=== PATIENT | female | born 1945 | race Caucasian/White ===

== ENCOUNTER → 2018-07-22 09:35 | Outpatient (CLI) | payer MEDICARE, SELFPAY ==
[2018-07-22 09:45] LABS: RBC Urine None Seen (0-5/HPF)
[2018-07-22 10:02] LABS: Appearance Urine UA CLEAR; Bilirubin Urine UA NEGATIVE (NEGATIVE); Color Urine UA YELLOW; Glucose Urine UA NEGATIVE (Normal); Ketones Urine UA NEGATIVE (NEGATIVE); Leukocyte Esterase Urine UA TRACE (NEGATIVE); Nitrite Urine UA NEGATIVE (Negative); Occult Blood Urine UA NEGATIVE (Negative); Protein Urine UA NEGATIVE (Negative); Specific Gravity Urine UA <=1.005 (1.000-1.035); Urobilinogen Urine UA 0.2 E.U./dL (0.2); pH Urine UA 6.5 (4.5-8.0)
[2018-07-22 10:04] LABS: Add Manual Diff / Slide Review NO; Hematocrit 40.8 % (36-46); Hemoglobin 13.9 g/dL (12.0-16.0); Lymphocytes Percent Auto 26.3 % (25-40); Mean Corpuscular Hemoglobin 31.2 PG (26-34); Mean Corpuscular Volume 91.8 fL (80-100); Monocytes Percent Auto 7.6 % (3-14); Neutrophils Absolute Auto 4800 /uL (3000-5900); Neutrophils Percent Auto 65.1 % (50-75); Platelet Count 327 X10^3/uL (150-400); Red Blood Cell Count 4.45 X10^6/uL (4.0-5.2); Red Cell Distribution Width 14.2 % (11.6-14.8); White Blood Cell Count 7.4 X10^3/uL (4.5-11.0)
[2018-07-22 10:09] LABS: Bacteria Urine Moderate (10-30); WBC Urine 1-5/HPF (0-5/HPF)
[2018-07-22 10:10] LABS: Culture Indicated Urine Specimen Cultured
== END ==
PROVIDERS: Family Provider Internal Medicine; PCP Internal Medicine; Visit Provider Internal Medicine
DX: M43.16 Spondylolisthesis, lumbar region (principal); N39.0 Urinary tract infection, site not specified
CPT/HCPCS: 36415; 81001; 85025; 87077; 87086; 87186

== ENCOUNTER 2018-07-25 06:03 | Inpatient (IN) | payer MEDICARE, SELFPAY ==
[2018-07-12 08:53] VITALS: BMI 17.9
[2018-07-25] VITALS (17 sets, daily range): BP systolic 98–142; BP diastolic 43–73; PULSE 70–84; RESP 10–16; TEMP 36.2–36.9; O2SAT 95–100; BMI 17.9
--- NOTE | 2018-07-25 | DI.RAD.S_ITS ---
PROCEDURE: XR LUMBAR SPINE 2-3V INDICATIONS: XLIF T3-4 T4-5 TECHNIQUE: 2 views of the lumbar spine were acquired. COMPARISON: None. FINDINGS: Bones: On [id number] vertebrae are present. There is normal bony alignment established after placement of transverse pedicle screws and bilateral vertical fixation rods from L3-L5, with an interbody disc prosthesis and old 34 and a cage disc prosthesis at L4-5. No vertebral body compression fractures. No suspicious bony lesions. Soft tissues: Overlying bowel gas pattern is normal. No suspicious soft tissue calcifications. IMPRESSION: Normal anatomic alignment established after posterior fusion and interbody disc prosthesis/cage disc prosthesis at L3-4 and L4-5, respectively Dictated by: Carlos Porras M.D. on 07/25/2018 at 12:18 Approved by: Carlos Porras M.D. on 07/25/2018 at 12:20
[2018-07-25] MEDS: LACTATED RINGERS 1,000 ML 42 ML IV ×3 (07:03→11:26)
--- NOTE | 2018-07-25 07:32 | PM.PREOP ---
Pre-operative Note Interval Note Pre-op Check: Yes History & Physical Reviewed by Physician and Yes Exam Performed Changes: No
--- NOTE | 2018-07-25 07:38 | P.OP_ITS ---
Operative Date/Time/Diagnoses Date of procedure: 07/25/18 Time of procedure: 11:52 Pre-op diagnosis: Lumbar stenosis with radiculopathy Lumbar spondylolisthesis History of lumbar laminectomy Post-op diagnosis: same Procedure & Clinicians Procedure: L3-4 anterior fusion L3-4 posterior fusion L4-5 TLIF Posterior screws L3-5 Iliac crest bone graft aspirate L3-4 laminectomy L4-5 revision laminectomy Use of microscope Placement of epidural catheter Same procedure as scheduled: Yes Indications: [age] year old female with intractable pain from stenosis. They had failed conservative management and requested operative intervention. Risks and benefits of surgery were discussed and appropriate consents were obtained. Surgeon: Eduardo Strickland Certified Meeting Professional: Brittaney Johnston Anesthesia Type: General Operative Notes Findings: none Closure Type: primary Specimen(s): none sent Implants & Drains: Nuvasive XLIF cages and MAS Reline screws Globus Rise cage Applied: catheter Estimated Blood Loss (mL): 50 Blood products transfused: none Procedure in detail: Patient was brought to the operating room and intubated on the table. Time-out was performed. They were then rolled over to the lateral decubitus position with the [id number]. The table was bent and they were taped down in the correct position. X-rays were taken to confirm a true AP and lateral. Preoperative antibiotics were given. The left flank was prepped and draped in standard sterile fashion. Using fluoroscopy, a 3 cm incision was made above the iliac crest. We bluntly dissected down with Metzenbaum scissors and split the 3 abdominal muscle layers. We dissected out the retroperitoneal space and using finger guidance, brought our 1st dilator down to the psoas muscle. Using neuromonitoring and fluoroscopy, we placed it through the psoas onto the L34 disc space in an anterior position and gradually pulled the dilator posteriorly along the disc space. We placed our guidewire and measured our depth for the retractor. We then dilated with the next 2 dilators and then placed our retractor over the dilators. Position was confirmed with fluoroscopy and the retractor was locked down to the bar. We opened up the retractor and checked with neuro monitoring. We then placed the matthew and again checked with neuro monitoring. The retractor was opened further and the ALL retractor was placed. An annulotomy was performed. We then performed a complete diskectomy with ring curette, pituitary, box osteotome. A Webb was advanced across the disc space under fluoroscopy to release the lateral annulus on the opposite side. We then used sequentially larger trials and confirmed under fluoroscopy. An XLIF cage was packed with Osteocell bone graft and impacted into the L34 disc space with fluoroscopy for the anterior fusion at this level. The wound was irrigated. The retractor was closed down. The matthew was removed. We carefully removed the retractor with direct visualization to make sure there was no neurovascular or abdominal injury. Final x-rays were taken. The muscle fascia was closed, superficial tissue was closed. The skin was closed. Sterile dressing was placed. The patient was then rolled over on the well-padded prone position on the Abiel table. Using fluoroscopy for localization, an 8 cm incision was made to the right of the midline. We split through the right sided paraspinal muscles. We then percutaneously placed Jamshidi needles down the right pedicles of L3, L4, and L5. This was done with neural monitoring and fluoroscopy. We then switched out guidewires, tapped and then placed our screw shanks. The retractor was opened. The soft tissue was cleared off in the gutter as well as medially. Care was taken around her previous laminotomy at L4-5. We used the bur to decorticate the transverse processes of L3, L4, and L5. We then brought in the microscope. A right sided revision laminectomy was performed at L4-5 with a bur and Kerrison rongeurs. We cleared out the neural foramen with a near complete facetectomy. This was separate and distinct from a approach for a TLIF as this was a revision decompression, going through scar tissue, greatly increasing the complexity, operating time, and risk associated with this. We then went up and performed a right-sided laminectomy at L3-4 as well. We carefully depressed the dura to reach to the opposite side and decompress the entire central canal. We cleared out the neural foramen. In the end the ball probe could be placed cephalad and caudally across to the opposite side in the foramen and everything was opened. We then began prepping for the TLIF at L4-5. The dura was carefully cleared off the disc and we cleared off scar tissue to free this up. We finished off the facetectomy and cleared out more caudally until we had a full exposure. An annulotomy was performed. We then performed complete diskectomy at L4-5 with pituitaries, curettes, paddles and Cheikh. We then packed the disc space with Osteocel bone graft. We measured and placed our 8 x 26 mm globus Rise cage and then opened it up under fluoroscopy at L4-5. More bone graft was packed in the disc space. This completed the posterior interbody fusion half of the TLIF at L4-5. The wound was copiously irrigated. An epidural catheter was primed with 4mL of 0.5% bupivacaine, 100 mcg fentanyl, 4 mg Duramorph, 1 mg Stadol. The dura was depressed under the cephalad lamina with a ball probe and the epidural catheter was gently advanced 6 cm cephalad. We placed the heads on our screws and then measured and placed a cheryl and locked it down. A small stab incision was made over the PSIS and a Jamshidi needle was placed into the iliac crest and several mL of bone marrow was aspirated. This was mixed with our locally harvested bone graft as well as the remaining Osteocell and placed in the posterolateral gutter for fusion at L3-4 and the posterior half of the fusion for the TLIF at L4-5. The fascia was then closed. The epidural was then injected without resistance. The catheter was pulled and we closed more over the fascia. We then used fluoroscopy and made a 8 cm incision on the left side. We percutaneously placed Jamshidi needles down the left pedicles of L3, L4, and L5. These were switched out over guidewires and then tapped and the MAS screw placed with fluoroscopic guidance and neural monitoring. We then placed a cheryl and locked down. The wound was irrigated. The fascia was closed. Vancomycin powder was placed in the wounds. The superficial and skin were closed. Sterile dressing was placed. The patient was then rolled over, extubated, brought to the recovery room with no complications. Complications: none Condition: stable Disposition: PACU Plan for aftercare: Inpatient. Up with physical therapy
[2018-07-25] MEDS: MIDAZOLAM 2 MG/2 ML VIAL IV (07:44)
[2018-07-25] MEDS: APREPITANT 40 MG CAPSULE PO (07:44)
[2018-07-25] MEDS: CEFAZOLIN 2 GM/100 ML FROZ.PIGGY IV ×2 (07:48→17:21)
--- NOTE | 2018-07-25 08:33 | SUR.OPER ---
Right lateral on padded OR table. Head on pillow, gel axillary roll, pillow to support left arm. Legs flexed, pillows between legs, gel pad under down leg and ankle. Multiple passes of 3 inch cloth tape across shoulder, hip, upper and lower legs to secure patient on OR table.
[2018-07-25] MEDS: SODIUM CHLORIDE 0.9% 1,000 ML, GENTAMICIN 80 MG IRR ×2 (08:42→08:43)
[2018-07-25] MEDS: BUPIVACAINE 0.5% (PF) 4 ML, MORPHINE-PF 4 MG, BUTORPHANOL 1 MG, fentaNYL 100 MCG INJ (09:43)
[2018-07-25] MEDS: VANCOMYCIN 1,000 MG VIAL 1000 MG TOP (10:52)
[2018-07-25] MEDS: THROMBIN (BOVINE) 5,000 UNIT VIAL 5000 UNIT TOP (11:11)
[2018-07-25] MEDS: fentaNYL 100 MCG/2 ML INJ 25 MCG IV ×2 (12:31→12:42)
--- NOTE | 2018-07-25 12:49 | SUR.PHASEI ---
verbalizes decreased pain, appears more relaxed. able to relax at times.
--- NOTE | 2018-07-25 12:53 | CM.DANOTE ---
DCP/Assessment: Reviewed chart. Patient is a 72yr old female admitted to [facility] for spine surgery performed today by Dr. Strickland. PCP listed is Dr. Baxter. Primary payor is 1)Medicare 2)[facility]. Attempted to meet with patient to explain CM/SW role. Patient not in room at time of visit(remains in surgery). CM housekeeping and laundry team leader will re-attempt visit after surgery and when patient medically appropriate to access. Discharge Planning/Care Management CM Discharge Assessment Start: 07/25/18 12:51 Freq: Status: Active Protocol: Document 07/25/18 12:51 KJS (Rec: 07/25/18 12:53 KJS [id number]) Discharge Planning Assessment Assigned Optical Mechanic TRAY Perez Advance Directives? Yes Advance Directives on File Yes History Provided By Medical Record Has Patient been admitted in last 30 No days? Prior Living Arrangements House Household Members spouse Transportation Arrangement Pending in person assessment Referrals Initiated Other Review Status In Process Please Provide Date Initial DC 07/25/18 Assessment Was Performed Next Review Type Continued Stay Review Pre-Anesthesia Assessment Start: 07/12/18 08:53 Freq: Status: Active Protocol: Document 07/12/18 08:53 CAB (Rec: 07/12/18 09:25 CAB [id number]) Pre-Anesthesia Assessment Patient Also Known As Burnham (AKA) Patient Information Reviewed Via Phone Assessment Assessment Completed With Patient Lab Results BMP/CMP CBC EKG Primary Care Provider Eva Baxter Medical Clearance Received Yes Seen Specialist in Last 12 Months Yes Specialist Seen Orthopedist Comment PCP clearance 06/27/18 to [facility] recs to be scanned to chart Primary Language Turkish Student Development Specialist Required No Height 160.02 cm Weight 45.813 kg Body Mass Index (BMI) 17.9 Hearing Ability Normal Visual Assist Glasses Dentition Type Teeth, Natural Present Barriers to Learning None Other Aids No Hx Anesthesia Reactions No Hx Family Anesthesia Reaction No Hx Malignant Hyperthermia No Hx Blood Transfusions No Anesthesia Review Requested No Chief Meteorologist No alcohol intake current alcohol intake frequency a few times a week Smoking Status Current every day smoker Tobacco type cigarettes Smoking packs per day 0.75 Smoking pack-years 30 Substance Use Type does not use Pain Present Pain Reported Musculoskeletal Symptoms Abnormal Gait Back Pain Difficulty Walking Joint Pain Muscle Cramps Muscle Spasms Muscle Weakness Numbness Radiating Pain into Limb Tingling History of Falling (Recent or History of No ) Patient is completely paralyzed or No completely immobile Mental Status Oriented to own ability Is patient on oxygen? No Does patient have MARIN/SOB No Hx Sleep Apnea No Suspected Sleep Apnea No Currently Taking a Beta Eldon No Can You Climb a Flight of Stairs Without Yes SOB Hx Chest Pain No Hx SOB No Hx Syncope or Dizziness No Anti-Coagulant Therapy No Has a Freight Brake Operator No Cardiac Testing No Hx Pacemaker/ICD No Pacemaker Rep Required? No Cardiac Clearance Received Not Applicable Diet Type At Home Regular dysphagia No Bladder Pattern Frequency Incontinent Nocturia Urinary Catheter Present No Hx Urinary Self Catheterization No Diabetes No Patient No Lactating No Hx Drug Resistant Organism No Presence of External or Internal Medical No Devices Have you traveled outside the [facility] in the last 30 days? Marital Status Lives With spouse Prior Living Arrangements House Number of Floors (Floors) One Floor Number of Stairs To Enter/Railing? 2 stairs, railing present Support System Child/Children Spouse Does the Patient Have Assistance After Yes Surgery Patient Discharge Plan Description Return Home Comment Pt advised 2-3 day length of stay per surgeon's office Feels Safe in Current Environment Yes Been Physically Hurt or Threatened By a No Person in Current Environment Do you have thoughts of harming yourself None or others? Are you currently considering suicide? No Do you have a plan to hurt yourself or No Plan others? Do You Have Any Spiritual Beliefs That No May Affect Your HC Choices? Do You Have Any Cultural Practices That No May Affect Your HC Choices? Spiritual Referral None Comment Lugaurav Who Can We Speak to About Patient's Care Family, friends Identifying Code for Release of Patient Declines to issue Information Health Care Proxy/Next of Kin Addy () Health Care Proxy or [phone] Emergency Contact Name Addy () Emergency Contact or [phone] Advance Directives? Yes Advance Directives on File Yes Power of Counselor/Art Therapist No PAC Instructions Durable medical equipment Medications to take/avoid Nasal antibiotic No ETOH/petroleum product on skin DOS NPO Post-op transportation Pre-surgical wash Sensory aids Sturdy shoes/comfortable clothes Do not bring valuables and remove jewelry
--- NOTE | 2018-07-25 13:04 | SUR.PHASEI ---
sleeping now maintaining oxygen saturation >92% while sleeping now. Easily arrousable from sleep drifts back to sleep when not stimulated.
[2018-07-25] MEDS: MORPHINE 2 MG/ML INJ 1 MG IV (14:16)
--- NOTE | 2018-07-25 15:44 | PC.NURSE ---
Post-op: Late entry Arrived to room 218 at 1325. Drowsy but awake. C/O 6/10 back pain, medicated with 1 mg IV Morphine for the same. Dressings to mid low back and L hip C/D/I. Able to move all extremities and denied paresthesias. Denied N/V, taking ice and water. Left on 2L O2, sats 96-99%. IVF per orders, site in L forearm WNL. Apodaca to gravity, urine clear yellow. Oriented to room and call light, bed alarm on.
[2018-07-25] MEDS: HYDROCODONE/ACET 5/325 TABLET 2 TAB PO ×2 (15:52→20:36)
[2018-07-25] MEDS: MORPHINE 2 MG/ML INJ IV ×2 (15:53→20:35)
--- NOTE | 2018-07-25 17:07 | PT.IPTN ---
Current Diagnoses Spondylolisthesis, lumbar region (07/25/18) Spinal stenosis, lumbar region with neurogenic claudication (07/25/18) Other specified postprocedural states (07/25/18) Surgery Performed Operation Date: 07/25/18 07:45 Actual Procedures p L3-4, L4-5 Revision Laminectomy & Anterior/Posterior Instru. fusion with bone graft - Eduardo Strickland MD Physical Therapy Treatment Note M3 PT-IP Subjective Start: 07/25/18 17:04 Freq: NEEDED Status: Active Protocol: Document 07/25/18 17:05 ORION (Rec: 07/25/18 17:07 ORION [id number]) Subjective Physical Therapy Visit Type Type Patient Refusal Notes at 1702 patient refused to participate in PT evaluation due to surgical pain; states pain is about 7/10 even with medication. Pt agreeable to participate tomorrow morning.
[2018-07-25] MEDS: DOCUSATE 100 MG CAPSULE PO (20:38)
[2018-07-25] MEDS: SENNOSIDES 8.6 MG TABLET 17.2 MG PO (20:38)
[2018-07-25] MEDS: SIMVASTATIN 20 MG TABLET PO (20:38)
[2018-07-25] MEDS: LACTATED RINGERS 1,000 ML 125 ML IV (22:34)
--- NOTE | 2018-07-25 23:47 | PC.NURSE ---
Maryellen is Ox3, post-op VS have been stable. 2L O2 at 94-96%. Reports pain as high as 8 or 9 when pain meds due, taking 2 Neches, telling nurse that will not be enough, requesting something stronger & faster, patient with facial grimace & moaning at times. Repositioned for comfort from [id number]. Medicated with Morphine 2 mg IV with good result, pt then able to rest or visit with family and appears more relaxed. PT here at 1800 to work with her but she refused them r/t all the pain. IVF infusing as ordered, ashford patent with clear yellow urine. Tolerating general diet. Wearing bilateral SCD's and denies any numbness or tingling to legs. Instructed to call nurse if she has any needs at all, has been calling appropriately tonight. Bed alarm active & fall precautions in place.
[2018-07-26] VITALS (9 sets, daily range): BP systolic 103–129; BP diastolic 55–76; PULSE 69–81; RESP 14–20; TEMP 36.3–36.8; O2SAT 93–98
[2018-07-26] MEDS: MORPHINE 2 MG/ML INJ IV ×4 (00:20→13:29)
[2018-07-26] MEDS: CEFAZOLIN 2 GM/100 ML FROZ.PIGGY IV (00:20)
[2018-07-26] MEDS: HYDROCODONE/ACET 5/325 TABLET 2 TAB PO ×6 (00:23→22:17)
[2018-07-26] MEDS: LEVOTHYROXINE 25 MCG TABLET 12.5 MCG PO (06:09)
[2018-07-26] MEDS: PANTOPRAZOLE 20 MG TABLET PO (06:09)
[2018-07-26 06:39] LABS: Hematocrit 28.7 % (36-46); Hemoglobin 9.5 g/dL (12.0-16.0)
--- NOTE | 2018-07-26 08:17 | PM.PNPO.1 ---
Subjective Date Patient Seen: 07/26/18 Time Patient Seen: 08:18 Interval history: Patient is postop day 1. Status post lamina/fusion by Dr. Strickland. States that she is having pain in the back area. Currently receiving hydrocodone as needed for pain and morphine for breakthrough pain. Denies any numbness or tingling in the legs or feet. Has not been up with physical therapy yet. Exam Vital Signs (past 8 hours): - 07/26/18 04:43 07/26/18 04:47 07/26/18 06:19 Temperature 98.1 F Pulse Rate 69 Respiratory Rate 14 Blood Pressure 103/55 L Pulse Oximetry 98 97 Oxygen Delivery Method Room Air Oxygen Flow Rate 0 Narrative Exam Narrative: Patient in bed. Ft pumps on feet. Dressing clean dry and intact. Alert and orient x3. 5/5 bilateral ankle strength. Bilateral distal pulses palpable. Bilateral calves soft and nontender. Apodaca catheter in. Objective Labs Result Diagrams: 07/26/18 05:59 Labs: Laboratory Results - last 24 hr 07/26/18 05:59 Hgb 9.5 L Hct 28.7 L Assessment & Plan Post-op (1) Postoperative anemia: Problem details: Iron and vitamin-C ordered Current Visit: Yes Status: Acute Postoperative Procedures Operation Date: 07/25/18 07:45 Actual Procedures Side Surgeon p L3-4, L4-5 Revision Laminectomy & Anterior/Posterior Instru. fusion with bone graft Eduardo Strickland MD Postop day 1. Continue pain medication as needed. Ambulate with physical therapy. BLT restrictions. DC Apodaca when more mobile. Possible home next couple of days. Quality VTE Deep Vein Thrombosis/Pulmonary Embolism Present on Admission: No
[2018-07-26] MEDS: ALPRAZolam 0.25 MG TABLET PO (08:55)
--- NOTE | 2018-07-26 09:10 | PT.IIE ---
Current Diagnoses Anemia, unspecified (07/25/18) Spondylolisthesis, lumbar region (07/25/18) Spinal stenosis, lumbar region with neurogenic claudication (07/25/18) Other specified postprocedural states (07/25/18) Surgery Performed Operation Date: 07/25/18 07:45 Actual Procedures p L3-4, L4-5 Revision Laminectomy & Anterior/Posterior Instru. fusion with bone graft - Eduardo Strickland MD Surgical History (Last Updated 07/12/18 @ 09:02 by Julieta Cherry RN) History of lumbar surgery (Acute) History of surgery on arm (Acute) History of total left hip arthroplasty (Acute ~2008) History of total right hip arthroplasty (Acute ~2015) Hx of appendectomy (Acute ~1983) Hx of elbow surgery (Acute) Hx of tonsillectomy (Acute) S/P LASIK surgery of both eyes (Acute) S/P cervical spinal fusion (Acute ~2013) Status post cataract extraction of both eyes with insertion of intraocular lens (Acute) Medical History (Last Updated 07/26/18 @ 08:20 by Anna Wynn PA-C) Postoperative anemia (Acute) Anxiety (Acute) Breast tumor (Acute ~2000) Chronically dry eyes (Acute) GERD (gastroesophageal reflux disease) (Acute) H/O thymoma (Acute ~2014) History of hysterectomy (Acute ~1983) Hyperlipidemia (Acute) Hypothyroidism (Acute) IBS (irritable bowel syndrome) (Acute) Physical Therapy Inpatient Evaluation/Re-Eval M1 PT/OT-IP Prior Functional Status Start: 07/25/18 17:04 Freq: NEEDED Status: Active Protocol: Document 07/26/18 09:10 AB (Rec: 07/26/18 09:57 AB [id number]) Medical Review Prior Functional Status Medical History Reviewed Yes Communication able to make needs known Mobility and Gait stated that she is independent with all mobilities and ambulation without AD; difficulty with long distance ambulation: leans on shopping cart when out doing groceries. Social History Household Members spouse Living Arrangements House Number of Floors (Floors) One Floor Number of Stairs To Enter/Railing? 2 steps with L rail ascending Home Environment Walk in Shower Home Equipment Front Wheel Walker Straight Cane Bedside Commode Shower Seat without Backrest Hand Held Shower Grab Bars In Shower M2 PT-IP Current Condition Start: 07/25/18 17:04 Freq: NEEDED Status: Active Protocol: Document 07/26/18 09:10 AB (Rec: 07/26/18 09:57 AB [id number]) Physical Therapy Current Condition Current Condition Evaluation Date 07/26/18 Treatment Diagnosis s/p L3-4 ant/post fusion; L4-5 TLIF; lami; diff. in amb Onset Date 07/25/18 Precautions Lumbar Precautions Log Roll No Twisting Limit Bending Lifting Restriction of 10 lbs Gait Belt above Incisional Area M3 PT-IP Subjective Start: 07/25/18 17:04 Freq: NEEDED Status: Active Protocol: Document 07/26/18 09:10 AB (Rec: 07/26/18 09:57 AB [email or web address]) Subjective Physical Therapy Visit Type Type Initial Evaluation Visit Start Time 09:10 Visit Stop Time 09:40 Total Visit Minutes 30 Number of MAGNETIC OBSERVER Visits 0 Physical Therapy Visit Comments Patient Comments i just got a shot for pain and I want to move before it wears out Therapy Pain Assessment Pain When Pain Assessed At Rest Pain Present Pain Present Pain Reported Location Lower Back Intensity 5 Scale Used Numeric (1 - 10) Pain Behaviors Crying Pain Management Techniques Apply Cold Re-positioning Timing of Activity with Medications M4 PT-IP Mobility and Gait Start: 07/25/18 17:04 Freq: NEEDED Status: Active Protocol: Document 07/26/18 09:10 AB (Rec: 07/26/18 09:57 AB [email or web address]) PT-Bed Mobility Assessment Rolling Type of Rolling Log Rolling Level of Assist Contact Guard Assistance Supine to Sit Supine to Sit Minimal Assistance Scooting Scooting to Edge of Bed Standby Assistance PT-Transfer Assessment Sit to and From Stand Sit to and from Stand Minimal Assistance 1 Person Assistance Use of Upper Extremities Equipment Transfer Assistive Device Gait Belt Front Wheeled Walker Orthotic/Prosthetic Devices or Brace: No Transfers Transfer Destination Chair Transfer Technique pt ambulated using FWW Transfer Ability Level of Assist Minimal Assistance Use of Upper Extremities Gait Assessment Gait Gait Assistance Required: Minimum Assistance Distance (Feet) 15 Able to Maintain Weight Bearing Status Yes During Gait Assistive Devices Assistive Device Gait Belt Front Wheeled Walker Orthotic/Prosthetic Devices or Brace: No Gait Deviations General Gait Pattern Decreased Stride Length Decreased Feet Clearance Factors Limiting Gait Function Factors Limiting Gait Function Decreased Activity Tolerance Decreased Strength Limited Range of Motion Poor Balance Poor Safety Awareness Comments Gait Comments pt ambulated using FWW min A and cues and presents with dec step length and elevation requiring cues for techniques. PT-Balance Assessment Sitting Balance and Reactions Static Sitting Balance Ability Good Dynamic Sitting Balance Ability Good Standing Balance and Reactions Static Standing Balance Ability Fair Dynamic Standing Balance Ability Fair Device Used FWW M5 PT-IP Objective Assessments Start: 07/25/18 17:04 Freq: NEEDED Status: Active Protocol: Document 07/26/18 09:10 AB (Rec: 07/26/18 09:57 AB [email or web address]) Orientation Orientation/Cognition Level of Alertness Alert Orientation Name Birthday Date Year Day of Week Place Situation Gross Range of Motion Lower Extremity ROM Assessment Within Functional Limits Strength Lower Extremity Strength Assessment Left Impaired Hip 3+/5 Knee 3+/5 Ankle 4-/5 M6 PT-IP Treatment Start: 07/25/18 17:04 Freq: NEEDED Status: Active Protocol: Document 07/26/18 09:10 AB (Rec: 07/26/18 09:57 AB [email or web address]) Physical Therapy Treatment Education Education Provided Precautions Weight Bearing Status Post-Op Packet Safety M7 PT-IP Assessment and Plan Start: 07/25/18 17:04 Freq: NEEDED Status: Active Protocol: Document 07/26/18 09:10 AB (Rec: 07/26/18 09:57 AB [email or web address]) PT Summary Assessment and Plan Potential Rehabilitation Potential Good Status of Condition at Evaluation Evolving Summary Impairments Pain ROM Strength Balance Coordination Cognition Bed Mobility Transfers Gait Activity Tolerance Assessment Summary pt requiring min A with mobility and has decrease activity tolerance due to c/o increase pain on low back. pt plans to go home with spouse to assist her. caregiver training will be conducted when appropriate and stair climbing training to be conducted prior to d/c. Goals Bed Mobility Goal Standby Assistance Transfer Goal Standby Assistance Front Wheeled Walker Gait Goal Standby Assistance Front Wheel Walker Gait Distance 125 Other Goals up/down 2 steps with L rail ascending SBA Days to Meet Goals 3 Frequency of Treatment Frequency Of Treatment Twice a Day Treatment Plan Physical Therapy Treatment Plan Bed Mobility Training Transfer Training Gait Training Therapeutic Exercise Balance Retraining Post Op Education Discharge Planning Hot or Cold Pack Neuromuscular Re-ed Coordination Retraining Manual Therapy Other Recommendations and Next Treatment bed mobility, ambulation Focus Recommendations To Nursing Amount of Assist Needed 1 Person Assist Discharge Recommendations PT Discharge Recommendations Home with Assistance
--- NOTE | 2018-07-26 09:16 | CM.DANOTE ---
DCP/continued: Reviewed chart. Met with patient this AM explained CM/SW role. Spoke with Orthopedic PA and it is not anticipated that patient will d/c from [facility] today. Patient reports that her plan is to go home when medically stable. Patient has supportive spouse/Addy in the home. Therapy expected to see today. CM team to continue to follow if needs were to arise. P: Anticipate home when medically stable. TRAY Perez Discharge Planning/Care Management CM Discharge Assessment Start: 07/25/18 12:51 Freq: Status: Active Protocol: Document 07/25/18 12:51 KJS (Rec: 07/25/18 12:53 KJS [id number]) Discharge Planning Assessment Assigned Bag Worker TRAY Perez Advance Directives? Yes Advance Directives on File Yes History Provided By Medical Record Has Patient been admitted in last 30 No days? Prior Living Arrangements House Household Members spouse Transportation Arrangement Pending in person assessment Referrals Initiated Other Review Status In Process Please Provide Date Initial DC 07/25/18 Assessment Was Performed Next Review Type Continued Stay Review Document 07/26/18 09:13 KJS (Rec: 07/26/18 09:16 KJS [id number]) Discharge Planning Assessment Assigned Bag Worker TRAY Perez Advance Directives? Yes Advance Directives on File Yes History Provided By Patient Medical Record Has Patient been admitted in last 30 No days? Prior Living Arrangements House Household Members spouse Independent with ADL's Yes Is patient alert and oriented? Yes Caregiver for Another No DME Already Rented / Owned FWW / Walker Cane Barriers to Discharge No Discharge Plan Home Transportation Arrangement Pending in person assessment Referrals Initiated Other Whiteboard Updated in Patient Room with Yes name and ext. # of Bag Worker Review Status In Process Please Provide Date Initial DC 07/25/18 Assessment Was Performed Next Review Type Continued Stay Review Pre-Anesthesia Assessment Start: 07/12/18 08:53 Freq: Status: Complete Protocol: Document 07/12/18 08:53 CAB (Rec: 07/12/18 09:25 CAB [id number]) Pre-Anesthesia Assessment Patient Also Known As Burnham (AKA) Patient Information Reviewed Via Phone Assessment Assessment Completed With Patient Lab Results BMP/CMP CBC EKG Primary Care Provider Eva Baxter Medical Clearance Received Yes Seen Specialist in Last 12 Months Yes Specialist Seen Orthopedist Comment PCP clearance 06/27/18 to med recs to be scanned to chart 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 No Height 160.02 cm Weight 45.813 kg Body Mass Index (BMI) 17.9 Hearing Ability Normal Visual Assist Glasses Dentition Type Teeth, Natural Present Barriers to Learning None Other Aids No Hx Anesthesia Reactions No Hx Family Anesthesia Reaction No Hx Malignant Hyperthermia No Hx Blood Transfusions No Anesthesia Review Requested No Court Liaison No alcohol intake current alcohol intake frequency a few times a week Smoking Status Current every day smoker Tobacco type cigarettes Smoking packs per day 0.75 Smoking pack-years 30 Substance Use Type does not use Pain Present Pain Reported Musculoskeletal Symptoms Abnormal Gait Back Pain Difficulty Walking Joint Pain Muscle Cramps Muscle Spasms Muscle Weakness Numbness Radiating Pain into Limb Tingling History of Falling (Recent or History of No ) Patient is completely paralyzed or No completely immobile Mental Status Oriented to own ability Is patient on oxygen? No Does patient have MARIN/SOB No Hx Sleep Apnea No Suspected Sleep Apnea No Currently Taking a Beta [place] No Can You Climb a Flight of Stairs Without Yes SOB Hx Chest Pain No Hx SOB No Hx Syncope or Dizziness No Anti-Coagulant Therapy No Has a Ice Cutter No Cardiac Testing No Hx Pacemaker/ICD No Pacemaker Rep Required? No Cardiac Clearance Received Not Applicable Diet Type At Home Regular dysphagia No Bladder Pattern Frequency Incontinent Nocturia Urinary Catheter Present No Hx Urinary Self Catheterization No Diabetes No Patient No Lactating No Hx Drug Resistant Organism No Presence of External or Internal Medical No Devices Have you traveled outside the [facility] States in the last 30 days? Marital Status Lives With spouse Prior Living Arrangements House Number of Floors (Floors) One Floor Number of Stairs To Enter/Railing? 2 stairs, railing present Support System Child/Children Spouse Does the Patient Have Assistance After Yes Surgery Patient Discharge Plan Description Return Home Comment Pt advised 2-3 day length of stay per surgeon's office Feels Safe in Current Environment Yes Been Physically Hurt or Threatened By a No Person in Current Environment Do you have thoughts of harming yourself None or others? Are you currently considering suicide? No Do you have a plan to hurt yourself or No Plan others? Do You Have Any Spiritual Beliefs That No May Affect Your HC Choices? Do You Have Any Cultural Practices That No May Affect Your HC Choices? Spiritual Referral None Comment Shabbir Who Can We Speak to About Patient's Care Family, friends Identifying Code for Release of Patient Declines to issue Information Health Care Proxy/Next of Kin Addy () Health Care Proxy or [phone] Emergency Contact Name Addy () Emergency Contact or [phone] Advance Directives? Yes Advance Directives on File Yes Power of Clinical Coder No PAC Instructions Durable medical equipment Medications to take/avoid Nasal antibiotic No ETOH/petroleum product on skin DOS NPO Post-op transportation Pre-surgical wash Sensory aids Sturdy shoes/comfortable clothes Do not bring valuables and remove jewelry
[2018-07-26] MEDS: FERROUS SULFATE 325 MG TABLET PO (09:34)
[2018-07-26] MEDS: DOCUSATE 100 MG CAPSULE PO ×2 (09:34→20:15)
[2018-07-26] MEDS: CELECOXIB 200 MG CAPSULE PO (09:34)
[2018-07-26] MEDS: LACTOBACILLUS ACIDOPHILUS TABLET 1 EACH PO (09:34)
[2018-07-26] MEDS: CALCIUM CARB/VIT D3 500/200 TABLET 1 EACH PO (09:34)
[2018-07-26] MEDS: ESTRADIOL 0.5 MG TABLET PO (09:34)
[2018-07-26] MEDS: DICYCLOMINE 10 MG CAPSULE PO (09:35)
[2018-07-26] MEDS: ASCORBIC ACID 500 MG TABLET PO (09:35)
[2018-07-26] MEDS: FISH OIL 1,000 MG CAPSULE 2000 MG PO (09:35)
--- NOTE | 2018-07-26 14:22 | OT.IP.EVAL ---
Current Diagnoses Anemia, unspecified (07/25/18) Spondylolisthesis, lumbar region (07/25/18) Spinal stenosis, lumbar region with neurogenic claudication (07/25/18) Other specified postprocedural states (07/25/18) Surgery Performed Operation Date: 07/25/18 07:45 Actual Procedures p L3-4, L4-5 Revision Laminectomy & Anterior/Posterior Instru. fusion with bone graft - Eduardo Strickland MD Past Medical History (Last Updated 07/26/18 @ 08:20 by Anna Wynn PA-C) Postoperative anemia (Acute) Anxiety (Acute) Breast tumor (Acute ~2000) Chronically dry eyes (Acute) GERD (gastroesophageal reflux disease) (Acute) H/O thymoma (Acute ~2014) History of hysterectomy (Acute ~1983) Hyperlipidemia (Acute) Hypothyroidism (Acute) IBS (irritable bowel syndrome) (Acute) Surgical History (Last Updated 07/12/18 @ 09:02 by Julieta Cherry RN) History of lumbar surgery (Acute) History of surgery on arm (Acute) History of total left hip arthroplasty (Acute ~2008) History of total right hip arthroplasty (Acute ~2015) Hx of appendectomy (Acute ~1983) Hx of elbow surgery (Acute) Hx of tonsillectomy (Acute) S/P LASIK surgery of both eyes (Acute) S/P cervical spinal fusion (Acute ~2013) Status post cataract extraction of both eyes with insertion of intraocular lens (Acute) Occupational Therapy Inpatient Evaluation/Re-Eval M1 PT/OT-IP Prior Functional Status Start: 07/25/18 17:04 Freq: NEEDED Status: Active Protocol: Document 07/26/18 14:22 ANDRE (Rec: 07/26/18 16:06 ANDRE [id number]) Medical Review Prior Functional Status Medical History Reviewed Yes Communication WNL Mobility and Gait stated that she is independent with all mobilities and ambulation without AD; difficulty with long distance ambulation: leans on shopping cart when out doing groceries. Activities of Daily Living and IADL's Pt indep in all self care. Pt very active brand executive. Social History Household Members spouse Living Arrangements House Number of Floors (Floors) One Floor Number of Stairs To Enter/Railing? 2 stairs to enter with L rail ascending Home Environment Standard Height Toilet Home Equipment Front Wheel Walker Straight Cane Bedside Commode Shower Seat without Backrest Hand Held Shower Long Handled Sponge Long Handled Shoe Horn Export Agent Sock Aid Grab Bars In Shower Additional Social History Comment Pt uses BSC over toilet to increase height and provide armrests. Pt has lower body dressing equipt from previous total hip surgery in 2008, 2015. M2 OT-IP Current Condition Start: 07/26/18 15:54 Freq: Status: Active Protocol: Document 07/26/18 14:22 PJM (Rec: 07/26/18 16:06 PJM [id number]) Occupational Therapy Current Condition Current Condition Evaluation Date 07/26/18 Treatment Diagnosis decreased self care and mobility s/p L3-4 A/P fusion, L4-5 TLIF w/lamis Post Operative Precautions Lumbar Precautions Log Roll No Twisting Limit Bending Lifting Restriction of 10 lbs Gait Belt above Incisional Area M3 OT- IP Subjective and Pain Start: 07/26/18 15:54 Freq: Status: Active Protocol: Document 07/26/18 14:22 PJM (Rec: 07/26/18 16:06 PJM [id number]) OT- Subjective Occupational Therapy Visit Type Type Initial Evaluation Visit Start Time 14:01 Visit Stop Time 14:22 Total Visit Minutes 21 Occupational Therapy Visit Comments Patient Comments I know how to use all that dressing equipment from my hip surgeries and I have had back surgery before. Patient/Caregiver Goals to go home; be able to garden in the spring OT Pain Assessment Pain When Pain Assessed After Treatment Pain Present Pain Present Pain Reported Location Lower Back Intensity 7 Scale Used Numeric (1 - 10) Description Aching Acute M4 OT- IP ADL's Start: 07/26/18 15:54 Freq: Status: Active Protocol: Document 07/26/18 14:22 PJM (Rec: 07/26/18 16:06 PJ [id number]) OT [id number] General Evaluation Self-Feeding Ability Independent OT ADL-Grooming General Evaluation Grooming Ability Independent Comments OT Grooming Comments provided education re: body mechanics at the sink OT ADL-Oral Care General Eval Oral Care Ability Independent Comments Oral Care Comments provided education re: body mechanics at the sink OT ADL-Dressing General Eval Upper Body Dressing Ability Independent Lower Body Dressing Ability Standby Assistance Assistive Devices Dressing Assistive Devices Long Handled Shoe Horn Export Agent Sock Aid Comments OT Dressing Comments Pt familiar with use of adaptive equipt from previous surgeries and can assist PRN at home. OT ADL-Toileting Comments OT Toileting Comments did not occur, pt still has [place] in place; put BSC over toilet as per home set uo OT ADL-Bathing Bathing Type Bathing Type Shower Comments OT Bathing Comments did not occur pt has all necessary bathroom safety equipment at home. M5 OT- IP IADL's Start: 07/26/18 15:54 Freq: Status: Active Protocol: Document 07/26/18 14:22 PJM (Rec: 07/26/18 16:06 [facility] NRTM) OT-Instrumental Activities of Daily Living Deficits IADL Deficits Identified Deficits Home Safety Awareness Awareness of Need for Assistance at Home Good Awareness Ability to Problem Solve Emergency Able to Problem Solve Situations Medication Management Medication Management No Deficits Identified Money Management Money Management No Deficits Identified Meal Preparation Meal Preparation Caregiver Provides Assist Meal Preparation Comments family to assist until pt able Seasonal Driver Seasonal Driver Caregiver Provides Assist Seasonal Driver Comments family to assist until pt able Driving Driving Caregiver Provides Assist Driving Comments family to assist until pt able M6 OT- IP Functional Cognition Start: 07/26/18 15:54 Freq: Status: Active Protocol: Document 07/26/18 14:22 PJM (Rec: 07/26/18 16:06 [facility] NRTM) Cognitive Factors Limiting Selfcare Function Cognitive Ability Level of Alertness Alert Patient Orientation Name Age Birthday Month Date Year Day of Week Place Situation Attention Span Ability Capable of Focused Attention Ability to Follow Commands Able to Follow One Step Commands Memory Description No Deficits Noted Cognitive Comments Cognitive Assessment Comments pt familiar with lumbar precautions form previous back surgeries OT- Vision and Hearing OT- Hearing Assessment OT- Hearing Assessment WFL OT- Vision Assessment Visual Acuity WFL Glasses For Reading M7 OT- IP Mobility and Balance Start: 07/26/18 15:54 Freq: Status: Active Protocol: Document 07/26/18 14:22 PJM (Rec: 07/26/18 16:06 [facility] NRTM) OT-Transfer Assessment Comments Mobility Comments pt declined out of bed this session due to pain level OT- Gait Assessment Comments Gait Ability Comments see P.T. notes OT- Balance Assessment Comments Other Balance Tests/Deviations/Treatment see P.T. notes : M8 OT- IP Objective Assessments Start: 07/26/18 15:54 Freq: Status: Active Protocol: Document 07/26/18 14:22 PJM (Rec: 07/26/18 16:06 PJM [id number]) OT Gross Range of Motion Upper Extremity Range of Motion Assessment Within Functional Limits OT Strength Upper Extremity Strength Assessment Within Functional Limits OT- Coordination Assessment Comments Coordination Comments BUE WFL OT-Muscle Tone Assessment Muscle Tone WNL Yes OT Sensation Assessment Comments Summary Comments BUE WNL per pt M9 OT- IP Assessment and Plan Start: 07/26/18 15:54 Freq: Status: Active Protocol: Document 07/26/18 14:22 PJM (Rec: 07/26/18 16:06 PJ [id number]) OT Summary Assessment and Plan Potential Rehabilitation Potential Good Analytic Complexity at Evaluation Low Summary Assessment Summary Low complexity OT assessment completed with emphasis on self care skills within lumbar spine precautions. Pt familiar with precautions and adapted ADL techniques and has all necessary equipment at home from previous lumbar and hip surgeries. Supportive, capable will provide 24 hr assist at d/c and daughter lives nearby also. Pt does not feel she needs any further OT services for this admission. Frequency of Treatment Frequency Of Treatment Discharge Discharge Recommendations OT Discharge Recommendations Home with 24/ Assist Home Equipment Needs none
--- NOTE | 2018-07-26 15:10 | PT.IPTN ---
Current Diagnoses Anemia, unspecified (07/25/18) Spondylolisthesis, lumbar region (07/25/18) Spinal stenosis, lumbar region with neurogenic claudication (07/25/18) Other specified postprocedural states (07/25/18) Surgery Performed Operation Date: 07/25/18 07:45 Actual Procedures p L3-4, L4-5 Revision Laminectomy & Anterior/Posterior Instru. fusion with bone graft - Eduardo Strickland MD Physical Therapy Treatment Note M2 PT-IP Current Condition Start: 07/25/18 17:04 Freq: NEEDED Status: Active Protocol: Document 07/26/18 09:10 AB (Rec: 07/26/18 09:57 AB [email or web address]) Physical Therapy Current Condition Current Condition Evaluation Date 07/26/18 Treatment Diagnosis s/p L3-4 ant/post fusion; L4-5 TLIF; lami; diff. in amb Onset Date 07/25/18 Precautions Lumbar Precautions Log Roll No Twisting Limit Bending Lifting Restriction of 10 lbs Gait Belt above Incisional Area M3 PT-IP Subjective Start: 07/25/18 17:04 Freq: NEEDED Status: Active Protocol: Document 07/26/18 15:10 AB (Rec: 07/26/18 16:02 AB [email or web address]) Subjective Physical Therapy Visit Type Type Treatment Note Visit Start Time 15:10 Visit Stop Time 15:45 Total Visit Minutes 35 Number of IN FLIGHT CREW MEMBER Visits 0 Physical Therapy Visit Comments Patient Comments pt agreeable to do PT Therapy Pain Assessment Pain When Pain Assessed At Rest Pain Present Pain Present Pain Reported Location Lower Back Intensity 4 Scale Used Numeric (1 - 10) Pain Management Techniques Apply Cold Re-positioning Timing of Activity with Medications M4 PT-IP Mobility and Gait Start: 07/25/18 17:04 Freq: NEEDED Status: Active Protocol: Document 07/26/18 15:10 AB (Rec: 07/26/18 16:02 AB [email or web address]) PT-Bed Mobility Assessment Rolling Type of Rolling Log Rolling Level of Assist Standby Assistance Supine to Sit Supine to Sit Standby Assistance PT-Transfer Assessment Sit to and From Stand Sit to and from Stand Standby Assistance Contact Guard Assistance Equipment Transfer Assistive Device Gait Belt Front Wheeled Walker Orthotic/Prosthetic Devices or Brace: No Comments Mobility Comments pt requires cues for log roll but mobility but completed with SBA. completed sit <> stand x 3 with cues for techniques requiring SBA. Gait Assessment Gait Gait Assistance Required: Contact Guard Assist Distance (Feet) 75 Able to Maintain Weight Bearing Status Yes During Gait Assistive Devices Assistive Device Gait Belt Front Wheeled Walker Orthotic/Prosthetic Devices or Brace: No Gait Deviations General Gait Pattern Decreased Stride Length Decreased Feet Clearance Factors Limiting Gait Function Factors Limiting Gait Function Decreased Activity Tolerance Decreased Strength Limited Range of Motion Pain Poor Balance M5 PT-IP Objective Assessments Start: 07/25/18 17:04 Freq: NEEDED Status: Active Protocol: Document 07/26/18 09:10 AB (Rec: 07/26/18 09:57 AB [email or web address]) Orientation Orientation/Cognition Level of Alertness Alert Orientation Name Birthday Date Year Day of Week Place Situation Gross Range of Motion Lower Extremity ROM Assessment Within Functional Limits Strength Lower Extremity Strength Assessment Left Impaired Hip 3+/5 Knee 3+/5 Ankle 4-/5 M6 PT-IP Treatment Start: 07/25/18 17:04 Freq: NEEDED Status: Active Protocol: Document 07/26/18 15:10 AB (Rec: 07/26/18 16:02 AB [email or web address]) Physical Therapy Treatment Education Education Provided Precautions Safety Other Treatments Other Treatment Performed caregiver educated on pt's level of assistance needed and for spouse to provide CGA to pt. M7 PT-IP Assessment and Plan Start: 07/25/18 17:04 Freq: NEEDED Status: Active Protocol: Document 07/26/18 15:10 AB (Rec: 07/26/18 16:02 AB [email or web address]) PT Summary Assessment and Plan Potential Rehabilitation Potential Good Summary Impairments Pain ROM Strength Balance Bed Mobility Transfers Gait Activity Tolerance Progress Towards Goals Slow Progress due to Pain Assessment Summary pt progressing slowly with mobility and continues to have decrease activity tolerance due to c/o pain. spouse plans to assist pt at home. Goals Bed Mobility Goal Standby Assistance Transfer Goal Standby Assistance Front Wheeled Walker Gait Goal Standby Assistance Front Wheel Walker Gait Distance 125 Other Goals up/down 2 steps with L rail ascending SBA Days to Meet Goals 3 Frequency of Treatment Frequency Of Treatment Twice a Day Treatment Plan Physical Therapy Treatment Plan Bed Mobility Training Transfer Training Gait Training Therapeutic Exercise Balance Retraining Post Op Education Discharge Planning Hot or Cold Pack Neuromuscular Re-ed Coordination Retraining Manual Therapy Other Recommendations and Next Treatment bed mobility, ambulation Focus Recommendations To Nursing Amount of Assist Needed 1 Person Assist Discharge Recommendations PT Discharge Recommendations Home with Assistance
[2018-07-26] MEDS: SIMVASTATIN 20 MG TABLET PO (20:15)
[2018-07-26] MEDS: SENNOSIDES 8.6 MG TABLET 17.2 MG PO (20:15)
[2018-07-26] MEDS: SODIUM CHLORIDE 0.9% FLUSH 10 ML IV (20:22)
[2018-07-27 05:03] VITALS: BP 125/65; PULSE 75; RESP 16; TEMP 36.3; O2SAT 94
[2018-07-27] MEDS: HYDROCODONE/ACET 5/325 TABLET 2 TAB PO ×2 (05:07→11:01)
[2018-07-27] MEDS: PANTOPRAZOLE 20 MG TABLET PO (05:08)
[2018-07-27] MEDS: LEVOTHYROXINE 25 MCG TABLET 12.5 MCG PO (05:18)
[2018-07-27 08:00] VITALS: BP 124/63; PULSE 77; RESP 16; TEMP 36.6
--- NOTE | 2018-07-27 08:18 | PM.PNPO.1 ---
Subjective Date Patient Seen: 07/27/18 Time Patient Seen: 08:18 Interval history: She is doing very well. She feels like she is independent with mobility. Back pain well controlled with medicine. Exam Vital Signs (past 8 hours): - 07/27/18 05:03 Temperature 97.4 F L Pulse Rate 75 Respiratory Rate 16 Blood Pressure 125/65 Pulse Oximetry 94 Oxygen Delivery Method Room Air Oxygen Flow Rate 0 Const Orientation: alert and oriented x3 Back/Spine/Pelvis Other: Dressing clean dry intact. 5/5 motor both lower extremities. Objective Labs Result Diagrams: 07/26/18 05:59 Assessment & Plan Post-op Postoperative Procedures Operation Date: 07/25/18 07:45 Actual Procedures Side Surgeon p L3-4, L4-5 Revision Laminectomy & Anterior/Posterior Instru. fusion with bone graft Eduardo Strickland MD she is doing great. She feels comfortable to go home. Proceed with discharge after physical therapy this morning. Quality VTE Deep Vein Thrombosis/Pulmonary Embolism Present on Admission: No
--- NOTE | 2018-07-27 08:21 | P.DS_ITS ---
History of Present Illness Date Patient Seen: 07/27/18 Time Patient Seen: 08:19 Chief complaint: [id number] Narrative: 72-year-old female with pain in the back and right leg. She has a history of a previous lumbar laminectomy. She failed conservative management and was admitted to the hospital for surgical treatment of her stenosis. Discharge Providers Date of admission: 07/25/18 06:03 Primary care physician: Eva Baxter MD Consults: 07/25/18 13:31 Consult to Occupational Therapy Evaluate & Treat Comment: Physician Instructions: Evaluate and treat Consult to Physical Therapy Evaluate & Treat Comment: Physician Instructions: Evaluate and Treat Discharge provider: Eduardo Strickland MD Discharge Date: 07/27/18 Summary Discharge Diagnosis: Lumbar stenosis and spondylolisthesis Hospital Course: She is brought to the operating room on 08/24/2018 where she underwent revision laminectomy at L3-4 and L4-5 with instrumented fusion at these levels. She did very well postoperatively with good pain control. She mobilized well with physical therapy. By postoperative day 2. She was comfortable and independent with ambulation and felt ready for discharge home. Status at Discharge Functional status at discharge: uses cane/walker Overall status at discharge: patient is progressing back to baseline Exam Vital Signs (past 8 hours): - 07/27/18 05:03 Temperature 97.4 F L Pulse Rate 75 Respiratory Rate 16 Blood Pressure 125/65 Pulse Oximetry 94 Oxygen Delivery Method Room Air Oxygen Flow Rate 0 Const Orientation: alert and oriented x3 Back/Spine/Pelvis Other: Dressing clean dry intact. 5/5 motor both lower extremities Objective Labs Result Diagrams: 07/26/18 05:59 Discharge Plan Discharge Plan Patient Disposition: Home Discharge Med Rec/Prescriptions Prescriptions: New hydrocodone-acetaminophen 5-325 mg Tablet See Label Instructions .ROUTE .COMPLEX PRN (Reason: Pain, Moderate (4-6)) Qty: 40 RF: 0 hydroxyzine pamoate 25 mg Capsule 25 mg PO Q4HR PRN (Reason: spasms) Qty: 14 RF: 0 Discontinued hydrocodone-acetaminophen 5 mg 5 mg DAILY RF: 0 No Action celecoxib [Celebrex] 200 mg Capsule 200 mg PO DAILY RF: 0 simvastatin 20 mg Tablet 20 mg PO BEDTIME RF: 0 omeprazole 20 mg Capsule,Delayed Release(Dr/Ec) 20 mg PO QAM RF: 0 ranitidine HCl 150 mg Capsule 150 mg PO QPM RF: 0 estradiol 0.5 mg Tablet 0.5 mg PO DAILY RF: 0 dicyclomine 10 mg Capsule 10 mg PO BID PRN (Reason: IBS) RF: 0 levothyroxine 25 mcg Capsule 12.5 mcg PO DAILY RF: 0 lifitegrast [Xiidra] 5 % Dropperette 1 drp EYE-BOTH BID RF: 0 Adult Probiotic 600 mg 600 mg DAILY RF: 0 Calcium 600-D3 Plus 1,200 mg 1,200 mg DAILY RF: 0 [place]-3 1,000 mg 2,000 mg DAILY RF: 0 Pro Bio 200 mg tablet 200 mg QPM RF: 0 Refresh Plus 1 drp ophthalmic (eye) PRN PRN (Reason: Dry Eyes) RF: 0 alprazolam 1 mg 0.25 mg DAILY RF: 0 cranberry 2,000 mg 2,000 mg DAILY RF: 0 selenium 200 mg 200 mg DAILY RF: 0 Provider Discharge Instructions Activity: limited BLT 10 lbs max lift Skin/Wound/Dressing Care Dressing: may change dressing and shower POD #5 (tuesday) Discharge Data Primary Care Provider: Eva Baxter Attending Provider: Eduardo Strickland Admit Date/Time: 07/25/18 06:03 Quality VTE Deep Vein Thrombosis/Pulmonary Embolism Present on Admission: No
[2018-07-27] MEDS: ESTRADIOL 0.5 MG TABLET PO (08:36)
[2018-07-27] MEDS: ASCORBIC ACID 500 MG TABLET PO (08:36)
[2018-07-27] MEDS: DOCUSATE 100 MG CAPSULE PO (08:36)
[2018-07-27] MEDS: FERROUS SULFATE 325 MG TABLET PO (08:36)
[2018-07-27] MEDS: FISH OIL 1,000 MG CAPSULE 2000 MG PO (08:36)
[2018-07-27] MEDS: CELECOXIB 200 MG CAPSULE PO (08:36)
[2018-07-27] MEDS: LACTOBACILLUS ACIDOPHILUS TABLET 1 EACH PO (08:37)
[2018-07-27] MEDS: SODIUM CHLORIDE 0.9% FLUSH 10 ML IV (08:37)
[2018-07-27] MEDS: CALCIUM CARB/VIT D3 500/200 TABLET 1 EACH PO (08:37)
--- NOTE | 2018-07-27 08:40 | PT.IPTN ---
Current Diagnoses Anemia, unspecified (07/25/18) Spondylolisthesis, lumbar region (07/25/18) Spinal stenosis, lumbar region with neurogenic claudication (07/25/18) Other specified postprocedural states (07/25/18) Surgery Performed Operation Date: 07/25/18 07:45 Actual Procedures p L3-4, L4-5 Revision Laminectomy & Anterior/Posterior Instru. fusion with bone graft - Eduardo Strickland MD Physical Therapy Treatment Note M2 PT-IP Current Condition Start: 07/25/18 17:04 Freq: NEEDED Status: Active Protocol: Document 07/26/18 09:10 AB (Rec: 07/26/18 09:57 AB [email or web address]) Physical Therapy Current Condition Current Condition Evaluation Date 07/26/18 Treatment Diagnosis s/p L3-4 ant/post fusion; L4-5 TLIF; lami; diff. in amb Onset Date 07/25/18 Precautions Lumbar Precautions Log Roll No Twisting Limit Bending Lifting Restriction of 10 lbs Gait Belt above Incisional Area M3 PT-IP Subjective Start: 07/25/18 17:04 Freq: NEEDED Status: Active Protocol: Document 07/27/18 08:40 GGD (Rec: 07/27/18 11:06 GGD [email or web address]) Subjective Physical Therapy Visit Type Type Treatment Note Visit Start Time 08:10 Visit Stop Time 08:40 Total Visit Minutes 30 Number of ELECTROLYSIS OPERATOR Visits 1 Physical Therapy Visit Comments Patient Comments Pt states she hopes to go home . Therapy Pain Assessment Pain When Pain Assessed At Rest Pain Present Pain Present Pain Reported Location Lower Back Intensity 5 Scale Used Numeric (1 - 10) Description Aching Pain Management Techniques Apply Cold Re-positioning Timing of Activity with Medications M4 PT-IP Mobility and Gait Start: 07/25/18 17:04 Freq: NEEDED Status: Active Protocol: Document 07/27/18 08:40 GGD (Rec: 07/27/18 11:06 GGD [email or web address]) PT-Bed Mobility Assessment Rolling Type of Rolling Log Rolling Level of Assist Standby Assistance Supine to Sit Supine to Sit Standby Assistance Scooting Scooting to Edge of Bed Standby Assistance PT-Transfer Assessment Sit to and From Stand Sit to and from Stand Standby Assistance Contact Guard Assistance Equipment Transfer Assistive Device Gait Belt Front Wheeled Walker Orthotic/Prosthetic Devices or Brace: No Transfers Transfer Destination Chair Wheelchair Transfer Ability Level of Assist Contact Guard Assistance Use of Upper Extremities Gait Assessment Gait Gait Assistance Required: Contact Guard Assist Distance (Feet) 80 Able to Maintain Weight Bearing Status Yes During Gait Assistive Devices Assistive Device Gait Belt Front Wheeled Walker Orthotic/Prosthetic Devices or Brace: No Gait Deviations General Gait Pattern Decreased Stride Length Decreased Feet Clearance Factors Limiting Gait Function Factors Limiting Gait Function Decreased Activity Tolerance Decreased Strength Limited Range of Motion Pain Poor Balance Stair Climbing Assessment Evaluation Level of Assist On Stairs Contact Guard Assistance Devices Stair Climbing Assistive Devices Left Railing Technique/Endurance Stair Climbing Technique Step to Step Number of Steps Climbed 3 Query Text: Stair Climbing Set # Repetitions (reps) 1 M5 PT-IP Objective Assessments Start: 07/25/18 17:04 Freq: NEEDED Status: Active Protocol: Document 07/26/18 09:10 AB (Rec: 07/26/18 09:57 AB [email or web address]) Orientation Orientation/Cognition Level of Alertness Alert Orientation Name Birthday Date Year Day of Week Place Situation Gross Range of Motion Lower Extremity ROM Assessment Within Functional Limits Strength Lower Extremity Strength Assessment Left Impaired Hip 3+/5 Knee 3+/5 Ankle 4-/5 M6 PT-IP Treatment Start: 07/25/18 17:04 Freq: NEEDED Status: Active Protocol: Document 07/27/18 08:40 GGD (Rec: 07/27/18 11:06 GGD [email or web address]) Physical Therapy Treatment Education Education Provided Precautions Safety M7 PT-IP Assessment and Plan Start: 07/25/18 17:04 Freq: NEEDED Status: Active Protocol: Document 07/27/18 08:40 GGD (Rec: 07/27/18 11:06 GGD [email or web address]) PT Summary Assessment and Plan Summary Assessment Summary Pt is improving with mobility. She needed less assistance for bed mobility. She improved her sit to stand needing less cues. She was safe and stable with gait and stair mobility. Frequency of Treatment Frequency Of Treatment Twice a Day Treatment Plan Other Recommendations and Next Treatment bed mobility, ambulation Focus Recommendations To Nursing Amount of Assist Needed 1 Person Assist Discharge Recommendations PT Discharge Recommendations Home with Assistance
[2018-07-27] MEDS: ALPRAZolam 0.25 MG TABLET PO (08:41)
--- NOTE | 2018-07-27 10:08 | CM.DANOTE ---
DCP/continued: Reviewed chart. Current plan is for pateint to d/c home today. Met with patient to confirm plan. Patient aware and agreeable. Important Message from Medicare signed. P: Home today. TRAY Perez Discharge Planning/Care Management CM Discharge Assessment Start: 07/25/18 12:51 Freq: Status: Active Protocol: Document 07/25/18 12:51 KJS (Rec: 07/25/18 12:53 KJS [id number]) Discharge Planning Assessment Assigned Rheologist TRAY Perez Advance Directives? Yes Advance Directives on File Yes History Provided By Medical Record Has Patient been admitted in last 30 No days? Prior Living Arrangements House Household Members spouse Transportation Arrangement Pending in person assessment Referrals Initiated Other Review Status In Process Please Provide Date Initial DC 07/25/18 Assessment Was Performed Next Review Type Continued Stay Review Document 07/26/18 09:13 KJS (Rec: 07/26/18 09:16 KJS [id number]) Discharge Planning Assessment Assigned Rheologist TRAY Perez Advance Directives? Yes Advance Directives on File Yes History Provided By Patient Medical Record Has Patient been admitted in last 30 No days? Prior Living Arrangements House Household Members spouse Independent with ADL's Yes Is patient alert and oriented? Yes Caregiver for Another No DME Already Rented / Owned FWW / Walker Cane Barriers to Discharge No Discharge Plan Home Transportation Arrangement Pending in person assessment Referrals Initiated Other Whiteboard Updated in Patient Room with Yes name and ext. # of Rheologist Review Status In Process Please Provide Date Initial DC 07/25/18 Assessment Was Performed Next Review Type Continued Stay Review Pre-Anesthesia Assessment Start: 07/12/18 08:53 Freq: Status: Complete Protocol: Document 07/12/18 08:53 CAB (Rec: 07/12/18 09:25 CAB [id number]) Pre-Anesthesia Assessment Patient Also Known As (DEISY Burnham Patient Information Reviewed Via Phone Assessment Assessment Completed With Patient Lab Results BMP/CMP CBC EKG Primary Care Provider Eva Baxter Medical Clearance Received Yes Seen Specialist in Last 12 Months Yes Specialist Seen Orthopedist Comment PCP clearance 06/27/18 to [facility] recs to be scanned to chart Primary Language Gabonese Transplanter Orchid Required No Height 160.02 cm Weight 45.813 kg Body Mass Index (BMI) 17.9 Hearing Ability Normal Visual Assist Glasses Dentition Type Teeth, Natural Present Barriers to Learning None Other Aids No Hx Anesthesia Reactions No Hx Family Anesthesia Reaction No Hx Malignant Hyperthermia No Hx Blood Transfusions No Anesthesia Review Requested No Communication Spec No alcohol intake current alcohol intake frequency a few times a week Smoking Status Current every day smoker Tobacco type cigarettes Smoking packs per day 0.75 Smoking pack-years 30 Substance Use Type does not use Pain Present Pain Reported Musculoskeletal Symptoms Abnormal Gait Back Pain Difficulty Walking Joint Pain Muscle Cramps Muscle Spasms Muscle Weakness Numbness Radiating Pain into Limb Tingling History of Falling (Recent or History of No ) Patient is completely paralyzed or No completely immobile Mental Status Oriented to own ability Is patient on oxygen? No Does patient have MARIN/SOB No Hx Sleep Apnea No Suspected Sleep Apnea No Currently Taking a Beta Eldon No Can You Climb a Flight of Stairs Without Yes SOB Hx Chest Pain No Hx SOB No Hx Syncope or Dizziness No Anti-Coagulant Therapy No Has a Linotype Operator No Cardiac Testing No Hx Pacemaker/ICD No Pacemaker Rep Required? No Cardiac Clearance Received Not Applicable Diet Type At Home Regular dysphagia No Bladder Pattern Frequency Incontinent Nocturia Urinary Catheter Present No Hx Urinary Self Catheterization No Diabetes No Patient No Lactating No Hx Drug Resistant Organism No Presence of External or Internal Medical No Devices Have you traveled outside the [facility] in the last 30 days? Marital Status Lives With spouse Prior Living Arrangements House Number of Floors (Floors) One Floor Number of Stairs To Enter/Railing? 2 stairs, railing present Support System Child/Children Spouse Does the Patient Have Assistance After Yes Surgery Patient Discharge Plan Description Return Home Comment Pt advised 2-3 day length of stay per surgeon's office Feels Safe in Current Environment Yes Been Physically Hurt or Threatened By a No Person in Current Environment Do you have thoughts of harming yourself None or others? Are you currently considering suicide? No Do you have a plan to hurt yourself or No Plan others? Do You Have Any Spiritual Beliefs That No May Affect Your HC Choices? Do You Have Any Cultural Practices That No May Affect Your HC Choices? Spiritual Referral None Comment Shabbir Who Can We Speak to About Patient's Care Family, friends Identifying Code for Release of Patient Declines to issue Information Health Care Proxy/Next of Kin Addy () Health Care Proxy or [phone] Emergency Contact Name Addy () Emergency Contact or [phone] Advance Directives? Yes Advance Directives on File Yes Power of Manager Of Network No PAC Instructions Durable medical equipment Medications to take/avoid Nasal antibiotic No ETOH/petroleum product on skin DOS NPO Post-op transportation Pre-surgical wash Sensory aids Sturdy shoes/comfortable clothes Do not bring valuables and remove jewelry
--- NOTE | 2018-07-27 10:54 | PC.NURSE ---
Problem with computer issue per MD unable to finalize discharge medications. discharge/home medications reconciled with Dr. Strickland over the phone, and verified to continue (see paper copy placed in chart), along with new prescription for norco and vistaril as prescribed.
--- NOTE | 2018-07-27 11:13 | PC.NURSE ---
Discharge instructions, home medications and prescriptions, and home care handouts reviewed with patient. Patient and her state understanding and have no further questions or concerns at this time. Dressing to back remains CDI. Patient states she has first follow up appointment scheduled. Instructed to also call and schedule follow up with PCP per MD recommendations. Escorted out via wheelchair with all belongings to home with by DIRECTOR OF DIAGNOSTIC IMAGING. Instructed to call Dr. Hood office for questions or concerns.
== END 2018-07-27 11:16 | disposition home or self-care (01) | DRG 454 ==
PROVIDERS: Admitting Provider Orthopaedic Surgery; Family Provider Internal Medicine; PCP Internal Medicine; Visit Provider Orthopaedic Surgery
PROC: 0SG00A0 Fusion of Lumbar Vertebral Joint with Interbody Fusion Device, Anterior Approach, Anterior Column, Open Approach (ICD-10-PCS; CPT 22558; principal; 2018-07-25 07:45)
DX: M48.062 Spinal stenosis, lumbar region with neurogenic claudication (principal); D62 Acute posthemorrhagic anemia; M43.16 Spondylolisthesis, lumbar region; F17.210 Nicotine dependence, cigarettes, uncomplicated; I10 Essential (primary) hypertension; E03.9 Hypothyroidism, unspecified; F41.9 Anxiety disorder, unspecified; M96.1 Postlaminectomy syndrome, not elsewhere classified
CPT/HCPCS: 36415; 72100; 76000; 81001; 85014; 85018; 85025; 87077; 87086; 87186; 94760; 97116; 97162; 97165; 97530; 99406; C1776; C1788; A9270; J0330; J0595; J0690; J1100; J2250; J2270; J2274; J2405; J2704; J3010; J8501

== ENCOUNTER → 2020-03-11 18:07 | Outpatient (CLI) | payer MEDICARE, SELFPAY ==
[2018-07-25 18:13] VITALS: BMI 17.9
--- NOTE | 2020-03-11 | DI.MRI.S_ITS ---
PROCEDURE: MR KNEE LT WO CON INDICATIONS: Pain in left knee TECHNIQUE: Noncontrast sagittal PD fast spin echo and T2 fast spin echo with fat saturation, sagittal 3-D FLASH with fat saturation; coronal T1 spin echo and PD fast spin echo with fat saturation, and axial PD fast spin echo with fat saturation through the knee. COMPARISON: [facility], CR, XR KNEE ARTHRITIC SERIES LT, 03/05/2020, 9:46. FINDINGS: Image quality: Excellent. Menisci: There is no evidence of focal medial meniscal tear. Suggestion of chronic complex tear involving anterior horn, body and posterior horn of lateral meniscus is seen versus prior partial meniscectomy. Peripheral displacement of lateral meniscal remanent is seen bowing the lateral collateral ligament. The meniscal root ligaments appear intact. 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 Low-grade intrasubstance partial thickness tear cannot be excluded. No full-thickness ACL rupture. PCL is intact. Medial structures: There is low-grade MCL sprain.. The posterior oblique ligament, semimembranosus tendon insertions, oblique popliteal ligament, and meniscocapsular junction appear intact. Visualized portions of the pes anserinus tendons appear normal. No abnormal bursal fluid. Lateral structures: Moderate grade sprain/partial thickness tear involving lateral collateral ligament is seen. Overlying biceps femoris tendon is intact. The popliteus tendon appears normal; the popliteofibular ligament appears intact. The posterosuperior and anteroinferior popliteomeniscal fascicles appear intact. The arcuate and fabellofibular ligaments appear intact, on either side of the lateral inferior geniculate artery. Iliotibial band appears normal. Anterior structures: The quadriceps and patellar tendons appear intact. Patellar alignment is normal. No femoral trochlear dysplasia or ventral trochlear prominence. No edema in the infrapatellar fat pad. 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 Bony contusion involving weight-bearing portion of lateral femoral condyle and adjacent lateral tibial plateau is seen with subchondral sclerosis and cyst formation. Joint space: There is large amount of joint fluid, no gross intra-articular loose body is seen. There is a tiny popliteal cyst. Normal appearing synovial plicae are incidentally noted. IMPRESSION: 1. Suggestion of prior partial meniscectomy versus chronic complex tear involving lateral meniscus with truncated appearance of the lateral meniscus. No evidence of focal medial meniscal tear. 2. Chronic myxoid degenerative change is and low-grade intrasubstance partial-thickness tear involving anterior cruciate ligament. No full-thickness ACL rupture. PCL is intact. 3. Low-grade MCL sprain. Moderate grade LCL sprain and intrasubstance partial-thickness tear. 4. Moderate to severe tricompartmental osteoarthritis and chondromalacia most prominent in the lateral femorotibial compartment. Bony contusion in lateral femoral tibial compartment. No acute fracture or dislocation. Large amount of joint effusion, no definite intra-articular loose body. Tiny popliteal cyst. Dictated by: Jasmeet Fry M.D. on 03/12/2020 at 9:15 Approved by: Jasmeet Fry M.D. on 03/12/2020 at 9:20
== END ==
PROVIDERS: Family Provider Internal Medicine; PCP Orthopaedic Surgery; Referring Provider Orthopaedic Surgery; Visit Provider Orthopaedic Surgery
DX: M25.562 Pain in left knee (principal); S83.422A Sprain of lateral collateral ligament of left knee, initial encounter; S83.412A Sprain of medial collateral ligament of left knee, initial encounter; M17.12 Unilateral primary osteoarthritis, left knee; M94.262 Chondromalacia, left knee; M25.462 Effusion, left knee
CPT/HCPCS: 73721

== ENCOUNTER → 2020-04-16 09:37 | Outpatient (CLI) | payer MEDICARE, SELFPAY ==
[2018-07-25 18:13] VITALS: BMI 17.9
[2020-04-16 10:25] LABS: Add Manual Diff / Slide Review NO; Basophils Absolute Auto 0 /uL (0-100); Basophils Percent Auto 0.5 % (0-2); Eosinophils Absolute Auto 0 /uL (0-450); Hemoglobin 13.5 g/dL (12.0-16.0); Lymphocytes Absolute Auto 1600 /uL (1100-4500); Lymphocytes Percent Auto 24.9 % (25-40); Mean Corpuscular HGB Conc 33.8 % (30-36); Mean Corpuscular Hemoglobin 31.9 PG (26-34); Mean Corpuscular Volume 94.4 fL (80-100); Monocytes Absolute Auto 500 /uL (0-900); Monocytes Percent Auto 7.5 % (3-14); Neutrophils Absolute Auto 4400 /uL (1500-7000); Neutrophils Percent Auto 67.1 % (50-75); Platelet Count 223 X10^3/uL (150-400); Red Blood Cell Count 4.24 X10^6/uL (4.0-5.2); Red Cell Distribution Width 13.7 % (11.6-14.8); White Blood Cell Count 6.6 X10^3/uL (4.5-11.0)
[2020-04-16 10:36] LABS: Hemoglobin A1C% w Est Avg Glu 5.4 % (4.0-6.0)
[2020-04-16 10:56] LABS: Appearance Urine UA SL CLOUDY; Bilirubin Urine UA NEGATIVE (NEGATIVE); Color Urine UA YELLOW; Glucose Urine UA NEGATIVE (Negative); Ketones Urine UA NEGATIVE (NEGATIVE); Leukocyte Esterase Urine UA NEGATIVE (NEGATIVE); Nitrite Urine UA POSITIVE (Negative); Occult Blood Urine UA NEGATIVE (Negative); Protein Urine UA NEGATIVE (Negative); Urobilinogen Urine UA 0.2 E.U./dL (0.2)
[2020-04-16 10:58] LABS: Alanine Aminotransferase 14 IU/L (<35); Albumin 4.3 g/dL (3.5-5.0); Albumin Globulin Ratio 1.5 (1.0-2.8); Alkaline Phosphatase 65 U/L (38-126); Aspartate Aminotransferase 25 IU/L (14-36); BUN Creatinine Ratio 25.4 (6-22); Bilirubin Total 0.6 mg/dL (0.2-1.3); Blood Urea Nitrogen 15 mg/dL (7-17); Calcium 9.4 mg/dL (8.4-10.2); Carbon Dioxide 29 mmol/L (22-32); Chloride 104 mmol/L (98-107); Estimated Glomerular Filt Rate > 60.0 mL/min (>60); Globulin 2.8 g/dL (1.7-4.1); Glucose 105 mg/dL (80-110); HEMOLYSIS < 15 (0-50); Potassium 4.6 mmol/L (3.4-5.1); Sodium 137 mmol/L (137-145); Total Protein 7.1 g/dL (6.3-8.2)
[2020-04-16 11:06] LABS: Bacteria Urine Many (>30); RBC Urine 0-1/HPF (0-5/HPF); Squamous Epithelial Cell Urine 10-30 /HPF (0-5/HPF); WBC Urine 1-5/HPF (0-5/HPF)
[2020-04-16 11:07] LABS: Culture Indicated Urine Cult Not Indicated
== END ==
PROVIDERS: Family Provider Internal Medicine; PCP Orthopaedic Surgery; Referring Provider Orthopaedic Surgery; Visit Provider Orthopaedic Surgery
DX: Z01.818 Encounter for other preprocedural examination (principal); Z01.812 Encounter for preprocedural laboratory examination; R73.9 Hyperglycemia, unspecified; N39.0 Urinary tract infection, site not specified
CPT/HCPCS: 36415; 80053; 81001; 83036; 85025; 93005

== ENCOUNTER → 2020-05-12 09:50 | Outpatient (CLI) | payer MEDICARE, SELFPAY ==
[2018-07-25 18:13] VITALS: BMI 17.9
[2020-05-13 17:50] LABS: COVID19 Sendout Not Detected (Not Detect)
== END ==
PROVIDERS: Family Provider Internal Medicine; PCP Orthopaedic Surgery; Visit Provider Nurse Practitioner
DX: Z11.59 Encounter for screening for other viral diseases (principal)
CPT/HCPCS: 87635

== ENCOUNTER 2020-05-15 06:19 | Day surgery (SDC) | payer MEDICARE, SELFPAY ==
[2018-07-25 18:13] VITALS: BMI 17.9
[2020-05-06 13:49] VITALS: BMI 16.6
[2020-05-15] VITALS (16 sets, daily range): BP systolic 95–153; BP diastolic 36–89; PULSE 57–75; RESP 14–20; TEMP 36.2–37.8; O2SAT 93–100; BMI 17.0
--- NOTE | 2020-05-15 06:00 | DI.RAD.S_ITS ---
PROCEDURE: XR KNEE LT 1TO2V INDICATIONS: post op films TECHNIQUE: 2 view(s) of the knee acquired. COMPARISON: None. FINDINGS: Bones: Patient is status post knee joint arthroplasty. Hardware components are in expected positions. Visualized bony structures are intact. Soft tissues: Overlying postoperative changes are noted. IMPRESSION: Expected postoperative alignment. Dictated by: Brooks Payan M.D. on 05/15/2020 at 15:42 Approved by: Brooks Payan M.D. on 05/15/2020 at 15:43
[2020-05-15] MEDS: PREGABALIN 75 MG CAPSULE PO (06:48)
[2020-05-15] MEDS: ACETAMINOPHEN 325 MG TABLET 975 MG PO (06:48)
[2020-05-15] MEDS: CELECOXIB 200 MG CAPSULE PO (06:48)
[2020-05-15] MEDS: VANCOMYCIN 1,000 MG/200 ML PIGGYBACK 200 MG IV (06:49)
--- NOTE | 2020-05-15 07:47 | PM.PREOP ---
Pre-operative Note COVID-19 COVID-19 status: Negative Interval Note History & Physical reviewed/Exam performed by Physician: Yes Changes to H&P: No
[2020-05-15] MEDS: CEFAZOLIN 2 GM/100 ML FROZ.PIGGY IV ×3 (07:50→23:39)
--- NOTE | 2020-05-15 07:50 | PM.OP.1 ---
Operative Date/Time/Diagnoses Date of procedure: 05/15/20 Time of procedure: 07:59 Pre-op diagnosis: left tibial malunion, left knee OA Post-op diagnosis: same Procedure & Clinicians Procedure: Left total knee arthroplasty Same procedure as scheduled: Yes Indications: The patient has had progressively worsening left knee pain with radiographic changes consistent with arthritis. Non-operative management has failed and the patient has requested total knee replacement. 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 Special intraoperative planning and equipment was made available to adapt to her deformed proximal tibia. The risks, benefits and alternatives to surgery were discussed with the patient prior to proceeding. Risks discussed included, but were not limited to, failure to relieve pain, stiffness, infection, nerve damage, deep venous thrombosis, pulmonary embolism, stroke, coma, heart attack, permanent paralysis and , as well as the potential need for eventual revision of the prosthetic. Surgeon: Leidy Fuentes [employer] Repairer: Ritesh Keane Anesthesia Type: General and Spinal Operative Notes Findings: Severe left knee osteoarthritis, good stability, good tracking of the patella and balance, some defect in the proximal tibia filled with cancellous bone from the proximal tibia and femur Closure Type: primary Specimen(s): none sent Prosthetic devices, grafts, tissues, transplants, or devices: Fuentes and Nephew Leighton BC has to size 4 femur, size 3 tibia with a standard base plate and a 35 by 7-1/2 mm patella, +10 poly Applied: drain(s) Estimated Blood Loss (mL): 250 Blood products transfused: none Tourniquet time (min): 82 Procedure in detail: The patient was seen in the pre-operative area, where the patient identified the left knee as the operative site and this was marked with my initials. The patient received pre-operative antibiotics, and was taken to the operating room and placed on the operative table in the supine position. After satisfactory anesthesia, a multimedia coordinator out was performed. The left leg was encircled with a tourniquet about the proximal thigh, and the leg was prepared from the toes to the tourniquet with ChloroPrep in the usual fashion and draped through sterile drapes. The leg was elevated and exsanguinated with Eschmark bandage and the tourniquet inflated to [250] mmHg pressure. The knee was approached through an approximately 18 cm incision centered over the patella and carried into the knee through a medial parapatellar arthrotomy. A portion of the medial and lateral meniscus was resected. Soft tissue was carefully mobilized around the patella the patella was measured with a caliper. Bone was resected from the patella and the patellar height was reconstituted with up an appropriate sized patellar component. A cover was then placed on the patella. A small amount of additional medial and lateral meniscus was resected. The visionare guide fit well to the distal femur. It looked like an appropriate distal femoral cut and the cut was made without difficulty. The rotation was assessed. The tibia was prepared and the visionaire guide fit well to the distal tibia. The alignment was meticulously checked. The proximal tibial resection appeared appropriate and as planned. I then placed her in extension and checked the extension gap it looked appropriate for a size 9 poly. It was a little tighter laterally and use the gap photolithographer and freed some of the anterolateral soft tissue for symmetrical extension gap. The tibia was then flexed up a size 3 appeared appropriate. It was pinned into place with checked the rotation of the tibial component in the overall alignment. It was then drilled without difficulty the punch was noted to catch some distally. We had plan for possible stem was tibia and we used the shortened proximal punch and then a secondary punch in the tibia and then opened the Reamer and meticulously worked a bone in order to allow full seating of the tibia. There is reasonable quality bone in the proximal tibia but there was a defect in the anterolateral tibial was softened is seeing cancellous bone. Ultimately this was packed with bone which had been harvested from the bony resection pieces. Marcaine and lidocaine were injected into the posterior capsule resected the residual medial and lateral meniscus. The knee was then flexed up and the femoral cuts were finished and the box was prepared. [No] additional tibia was resected. Hemostasis was achieved especially posteriorly. Additional local was injected into the posterior capsule. The extension gap was assessed and additional releases for gap balancing were performed as necessary. Trial tibial and femoral components were then placed and the knee placed through a range of motion. Range of motion was [0-130], with good stability throughout the range. The trials were then removed, and the tibia was finished. The bone was prepared with pulsatile lavage, and dried with a sponge. Cement was applied and the final prosthetics placed. Excess cement was removed during and after cement curing. A brief Betadine soak was performed. After confirming there was no extruded cement posteriorly, the final tibial insert was placed. The knee was copiously irrigated and the tourniquet deflated. Hemostasis was obtained with the Bovie cautery. A drain was placed and brought out superolaterally. The capsule was closed with interrupted Vicryl suture. The subcutaneous layer was closed with barbed sutures, and the skin with a running 3-0 V-Lock suture and Surgical glue. An Aquacel Ag dressing was applied and the patient was taken to recovery having tolerated the procedure well. Complications: none Post-operative Condition: stable Disposition: Acute Care Plan for aftercare: The patient will be maintained on a standard total knee replacement protocol with weight bearing as tolerated. The patient will receive aspirin and sequential compression devices for DVT prophylaxis. The patient will be discharged home when safe for the home environment.
[2020-05-15] MEDS: TRANEXAMIC ACID 1,000 MG VIAL 1000 MG INJ ×2 (08:05→09:40)
--- NOTE | 2020-05-15 08:24 | SUR.OPER ---
Supine on padded OR bed. Pillow under head, arms secured on padded armboards <90 degree abduction. Safety belt across torso. Non-operative leg secured with tape over blanket over lower leg. Operative leg secured in DeMayo/Martinez positioner. Foam padded brace at thigh of operative leg.
[2020-05-15] MEDS: BUPIVACAINE 0.25% W/ EPI 30 ML VIAL 60 ML INJ (08:29)
[2020-05-15] MEDS: BUPIVACAINE LIPOSOME 266 MG/20 ML VIAL INJ (08:30)
[2020-05-15] MEDS: fentaNYL 100 MCG/2 ML INJ IV (10:22)
--- NOTE | 2020-05-15 10:56 | SUR.PHASEI ---
1035-Report to bal Adam on floor. X-ray here at 1045. Pt A&O and wanting to move around and get up. Reminded pt to stay in bed and stay still. Pt complying
--- NOTE | 2020-05-15 10:57 | SUR.PHASEI ---
Pt transferred to 227 in stable condition by bal Shepherd
[2020-05-15] MEDS: HYDROCODONE/ACET 5/325 TABLET 2 TAB PO ×4 (11:46→23:38)
[2020-05-15] MEDS: LACTATED RINGERS 1,000 ML 100 ML IV ×2 (11:48→21:53)
[2020-05-15] MEDS: IBUPROFEN 400 MG TABLET PO ×3 (14:01→19:32)
[2020-05-15] MEDS: ACETAMINOPHEN 325 MG TABLET 650 MG PO ×2 (14:02→19:28)
--- NOTE | 2020-05-15 14:40 | PT.IIE ---
Current Diagnoses Unilateral post-traumatic osteoarthritis, left knee (05/15/20) Surgery Performed Operation Date: 05/15/20 07:45 Actual Procedures p Total Knee Arthroplasty(Left) - Leidy Fuentes MD Surgical History (Last Updated 05/06/20 @ 13:55 by Julieta Cherry, RN) History of back surgery (Acute 07/25/18) History of hysterectomy (Acute ~1983) History of lumbar surgery (Acute) History of surgery on arm (Acute) History of total left hip arthroplasty (Acute ~2008) History of total right hip arthroplasty (Acute ~2015) Hx of appendectomy (Acute ~1983) Hx of elbow surgery (Acute) Hx of tonsillectomy (Acute) S/P cervical spinal fusion (Acute ~2013) S/P LASIK surgery of both eyes (Acute) Status post cataract extraction of both eyes with insertion of intraocular lens (Acute) Medical History (Last Updated 05/06/20 @ 14:09 by Julieta Cherry RN) Anxiety (Acute) Breast tumor (Acute ~2000) Chronically dry eyes (Acute) GERD (gastroesophageal reflux disease) (Acute) H/O thymoma (Acute ~2014) Hyperlipidemia (Acute) Hypothyroidism (Acute) IBS (irritable bowel syndrome) (Acute) Pneumonia (Acute 07/2018) Postoperative anemia (Acute) Physical Therapy Inpatient Evaluation/Re-Eval M1 PT/OT-IP Prior Functional Status Start: 05/15/20 16:30 Freq: NEEDED Status: Active Protocol: Document 05/15/20 14:40 AB (Rec: 05/15/20 16:39 AB [id number]) Medical Review Prior Functional Status Medical History Reviewed Yes Communication able to make needs known Mobility and Gait pt stated that she is independent with all mobilities and ambulation without AD Social History Household Members spouse Living Arrangements House Number of Floors (Floors) One Floor Number of Stairs To Enter/Railing? 3 steps to enter with L rail ascending Home Environment Standard Height Toilet,Built- In Shower Seat Home Equipment Front Wheel Walker,Straight Cane,Bedside Commode,Shower Seat without Backrest,Hand Held Shower Employment Status Retired M2 PT-IP Current Condition Start: 05/15/20 16:30 Freq: NEEDED Status: Active Protocol: Document 05/15/20 14:40 AB (Rec: 05/15/20 16:39 AB [email or web address]) Physical Therapy Current Condition Current Condition Evaluation Date 05/15/20 Treatment Diagnosis s/p L TKA; difficulty in walking Onset Date 05/15/20 Weight Bearing Status Weight Bearing Status Weight Bear as Tolerated Allowed Weight Bearing Amount (enter % LLE WBAT or #) (%) M3 PT-IP Subjective Start: 05/15/20 16:30 Freq: NEEDED Status: Active Protocol: Document 05/15/20 14:40 AB (Rec: 05/15/20 16:39 AB [email or web address]) Subjective Physical Therapy Visit Type Type Initial Evaluation Visit Start Time 14:40 Visit Stop Time 15:14 Total Visit Minutes 34 Number of GSA COORDINATOR Visits 0 Physical Therapy Visit Comments Patient Comments pt is agreeable to do PT Therapy Pain Assessment Pain When Pain Assessed At Rest Pain Present Pain Present Pain Reported Location Left Knee Intensity 4 Scale Used Numeric (0 - 10) Pain Management Techniques Apply Cold,Modification of Treatment,Re-positioning, Timing of Activity with Medications M4 PT-IP Mobility and Gait Start: 05/15/20 16:30 Freq: NEEDED Status: Active Protocol: Document 05/15/20 14:40 AB (Rec: 05/15/20 16:39 [email or web address]) PT-Bed Mobility Assessment Supine to Sit Supine to Sit Standby Assistance Sit to Supine Sit to Supine Standby Assistance Scooting Scooting to Edge of Bed Standby Assistance PT-Transfer Assessment Sit to and From Stand Sit to and from Stand Contact Guard Assistance,1 Person Assistance,Use of Upper Extremities Equipment Transfer Assistive Device Gait Belt,Front Wheeled Walker Orthotic/Prosthetic Devices or Brace: No Comments Mobility Comments pt completed supine to sit SBA . completed sit to stand CGA and was able to ambulate in room ~ 40 ft using FWW CGA. pt wanted to go back to bed afterwards and completed sit to supine SBA. positioned pt in bed. call light and table placed within reach. Gait Assessment Gait Gait Assistance Required: Contact Guard Assist Distance (Feet) 40 Able to Maintain Weight Bearing Status Yes During Gait Assistive Devices Assistive Device Gait Belt,Front Wheeled Walker Orthotic/Prosthetic Devices or Brace: No Gait Deviations General Gait Pattern Antalgic,Decreased Stride Length,Decreased Feet Clearance Factors Limiting Gait Function Factors Limiting Gait Function Decreased Activity Tolerance, Decreased Sensation,Decreased Strength,Limited Range of Motion,Pain,Poor Balance PT-Balance Assessment Sitting Balance and Reactions Static Sitting Balance Ability Normal Dynamic Sitting Balance Ability Normal Standing Balance and Reactions Static Standing Balance Ability Fair Dynamic Standing Balance Ability Fair Device Used FWW M5 PT-IP Objective Assessments Start: 05/15/20 16:30 Freq: NEEDED Status: Active Protocol: Document 05/15/20 14:40 AB (Rec: 05/15/20 16:39 AB [id number]) Orientation Orientation/Cognition Level of Alertness Alert Orientation Name,Place,Situation Language Function Ability No Deficits Noted Safety Awareness Understands Safety Issues Memory Description No Deficits Noted Gross Range of Motion Lower Extremity ROM Impairments L knee flexion: ~ 90 deg L knee extension: lacking ~ 20 deg to neutral Strength Lower Extremity Strength Assessment Left Impaired Hip 4/5 Knee 4-/5 Coordination Assessment Gross Coordination Gross Coordination WNL Sensation Assessment Sensation Gross Sensation Right LE Impaired,Left LE Impaired Light Touch Impaired Proprioception (Position) Impaired Sensation Description Numbness Comments Sensation Comments c/o slight numbness on her feet but can feel her knees Muscle Tone Muscle Tone WNL Yes M6 PT-IP Treatment Start: 05/15/20 16:30 Freq: NEEDED Status: Active Protocol: Document 05/15/20 14:40 AB (Rec: 05/15/20 16:39 AB [id number]) Physical Therapy Treatment Education Education Provided Precautions,Weight Bearing Status,Post-Op Packet,Safety M7 PT-IP Assessment and Plan Start: 05/15/20 16:30 Freq: NEEDED Status: Active Protocol: Document 05/15/20 14:40 AB (Rec: 05/15/20 16:39 [email or web address]) PT Summary Assessment and Plan Potential Rehabilitation Potential Good Status of Condition at Evaluation Stable Summary Impairments Pain,ROM,Strength,Balance, Coordination,Sensation,Tone, Cognition,Bed Mobility, Transfers,Gait,Activity Tolerance Assessment Summary pt requiring CGA with ambulation using FWW. pt plans to go home with spouse to assist her and is set up for outpt PT. will continue to assess progress. will conduct caregiver training if needed and also complete stair climbing training prior to d/ c. Goals Bed Mobility Goal Independent Transfer Goal Independent,Front Wheeled Walker Gait Goal Independent,Front Wheel Walker Gait Distance 200 Other Goals up/down 3 steps L rail ascending SBA Frequency of Treatment Frequency Of Treatment Twice a Day Treatment Plan Physical Therapy Treatment Plan Bed Mobility Training,Transfer Training,Gait Training, Therapeutic Exercise,Balance Retraining,Post Op Education, Discharge Planning,Hot or Cold Pack,Neuromuscular Re-ed, Coordination Retraining,Manual Therapy Recommendations To Nursing Amount of Assist Needed 1 Person Assist Discharge Recommendations PT Discharge Recommendations Home with Assistance, Outpatient PT Transportation Needs at Discharge Private Vehicle
--- NOTE | 2020-05-15 15:07 | PC.NURSE ---
Patient came to room 207 around 1300. She is a&ox3, has an aquacel dressing to her knee with bill wrap. Given vicodin earlier and then ibuprofen and tylenol. She is working with physical therapy now. Up to the floor around 1105, she started out in room 227 and then moved. Skin assessment done with Kelley PEREZ, patient up to try and void but unable states that her legs still felt a bit numb. This was around 1130. Hemovac put out 120cc of bloody drainage.
[2020-05-15] MEDS: DOCUSATE 100 MG CAPSULE PO (19:27)
[2020-05-15] MEDS: ASPIRIN EC 81 MG TABLET PO (19:27)
[2020-05-15] MEDS: SIMVASTATIN 20 MG TABLET PO (19:27)
[2020-05-16] MEDS: IBUPROFEN 400 MG TABLET PO ×4 (01:03→12:56)
[2020-05-16] MEDS: HYDROCODONE/ACET 5/325 TABLET 2 TAB PO ×3 (04:09→12:56)
[2020-05-16 04:10] VITALS: BP 146/73; PULSE 56; RESP 18; TEMP 36.6; O2SAT 99
[2020-05-16] MEDS: PANTOPRAZOLE 20 MG TABLET PO (06:14)
[2020-05-16] MEDS: LEVOTHYROXINE 25 MCG TABLET 12.5 MCG PO (06:14)
[2020-05-16 06:26] LABS: Hematocrit 29.4 % (36-46); Hemoglobin 9.9 g/dL (12.0-16.0)
[2020-05-16 07:35] VITALS: PULSE 63; RESP 16; O2SAT 99
--- NOTE | 2020-05-16 07:37 | PM.DS.1 ---
History of Present Illness History of Present Illness Date Patient Seen: 05/16/20 Time Patient Seen: 07:37 Chief complaint: OPB Narrative: Please see HPI previously recorded in the chart. Discharge Providers Provider Discharge Date: 05/16/20 Primary care physician: Alex Reina MD Consults: 05/07/20 08:59 Consult to Anesthesiology Routine Comment: Consulting Provider: Anesthesiologist Reason for consultation: PAC courtesy re: Abnormal pre-op EKG 05/15/20 06:00 Consult to Anesthesiology Routine Comment: Consulting Provider: Anesthesiologist Reason for consultation: Regional block for post operative pain control 05/15/20 11:10 Consult to Discharge Planning Routine Comment: Consult to Physical Therapy Evaluate & Treat Comment: Physician Instructions: postop TKA protocol Consult to Respiratory Therapy Evaluate & Treat Comment: Physician Instructions: Evaluate and treat Discharge provider: Jaleesa Price PA-C Summary Hospital Course Discharge Diagnosis: s/p left TKA Hospital Course: The patient has had progressively worsening left knee pain with radiographic changes consistent with arthritis. Non-operative management has failed and the patient has requested total knee replacement. 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 Special intraoperative planning and equipment was made available to adapt to her deformed proximal tibia. The risks, benefits and alternatives to surgery were discussed with the patient prior to proceeding. Risks discussed included, but were not limited to, failure to relieve pain, stiffness, infection, nerve damage, deep venous thrombosis, pulmonary embolism, stroke, coma, heart attack, permanent paralysis and , as well as the potential need for eventual revision of the prosthetic. She underwent a left TKA with Dr. Fuentes which she tolerated well without complications. She was transferred to the acute care floor where she has been progressing well postoperatively. Pain has been well controlled with Sunray which she will be discharged with. She has mobilized with PT. She is voiding appropriately and tolerating a diet. She is stable for discharge to home later today. Status at Discharge Cognitive/behavioral status at discharge: oriented Functional status at discharge: uses cane/walker Overall status at discharge: patient is progressing back to baseline Exam Vital Signs (past 8 hours): - 05/16/20 04:10 Temperature 97.9 F Pulse Rate 56 L Respiratory Rate 18 Blood Pressure 146/73 H Pulse Oximetry 99 Oxygen Delivery Method Room Air Oxygen Flow Rate 0 Narrative Exam Narrative: 74 year old female resting comfortably in bed alert and oriented in no acute distress. Dressing in place is CDI. Intact distal motor in left extremity with soft calves bilaterally and palpable pedal pulses. Objective Labs Result Diagrams: 05/16/20 05:38 Labs: Laboratory Results - last 24 hr 05/16/20 05:38 Hgb 9.9 L Hct 29.4 L Discharge Plan Discharge Plan Patient Disposition: Home Discharge comment: Discharge to home when safe and cleared by PT Discharge Med Rec/Prescriptions Prescriptions: New hydrocodone-acetaminophen 5-325 mg Tablet 2 tab PO Q4HR PRN (Reason: Pain, Severe (7-10)) Qty: 40 RF: 0 aspirin 81 mg Tablet,Delayed Release (Dr/Ec) 81 mg PO BID Qty: 60 RF: 0 ibuprofen 400 mg Tablet 400 mg PO Q4HR Qty: 90 RF: 0 hydrocodone-acetaminophen 5-325 mg Tablet 1 tab PO Q4HR PRN (Reason: Pain, Severe (7-10)) Qty: 40 RF: 0 Continued loperamide 2 mg Capsule 2 mg PO Q4H PRN (Reason: Diarrhea) RF: 0 celecoxib [Celebrex] 200 mg Capsule 200 mg PO DAILY RF: 0 simvastatin 20 mg Tablet 20 mg PO BEDTIME RF: 0 omeprazole 20 mg Capsule,Delayed Release(Dr/Ec) 20 mg PO QAM RF: 0 estradiol 0.5 mg Tablet 0.5 mg PO DAILY RF: 0 dicyclomine 10 mg Capsule 10 mg PO BID PRN (Reason: IBS) RF: 0 levothyroxine 25 mcg Capsule 12.5 mcg PO DAILY RF: 0 Calcium 600-D3 Plus 1,200 mg 1,200 mg PO DAILY RF: 0 Refresh Plus 1 drp ophthalmic (eye) PRN PRN (Reason: Dry Eyes) RF: 0 alprazolam 1 mg 0.25 mg PO DAILY PRN (Reason: Anxiety) RF: 0 cranberry 2,000 mg 2,000 mg PO DAILY RF: 0 selenium 200 mg 200 mg PO DAILY RF: 0 Follow up/Referrals: Alex Reina MD [Primary Care Provider] - Discharge Orders: Discharge (Order); Ordered 05/16/20 Ordered By: Jaleesa Price Provider Discharge Instructions Diet: Diet as Tolerated Activity: Walk multiple times a day. Cold/Heat Therapy: Use ice multiple times a day. Skin/Wound/Dressing Care Report to your healthcare provider any signs of infection, such as:: chills, fever, night sweats, increased pain, unusual drainage and unusual redness Dressing: Keep Aquacel dressing on. Lawrence wrap ok to take off later today or tomorrow. Okay to shower. Visit Report/Discharge Packet Instructions: DI for Knee Replacement Stand Alone Forms: Surgery Discharge Discharge Data Primary Care Provider: Alex Reina Attending Provider: Leidy Fuentes Quality VTE Deep Vein Thrombosis/Pulmonary Embolism Present on Admission: No
[2020-05-16 08:00] VITALS: BP 137/79; PULSE 62; RESP 17; TEMP 37.1; O2SAT 99
[2020-05-16] MEDS: DOCUSATE 100 MG CAPSULE PO (09:20)
[2020-05-16] MEDS: DICYCLOMINE 10 MG CAPSULE PO (09:21)
[2020-05-16] MEDS: estradioL 0.5 MG TABLET PO (09:21)
[2020-05-16] MEDS: ASPIRIN EC 81 MG TABLET PO (09:22)
--- NOTE | 2020-05-16 09:47 | PT.IPTN ---
Current Diagnoses Unilateral post-traumatic osteoarthritis, left knee (05/15/20) Surgery Performed Operation Date: 05/15/20 07:45 Actual Procedures p Total Knee Arthroplasty(Left) - Leidy Fuentes MD Physical Therapy Treatment Note M2 PT-IP Current Condition Start: 05/15/20 16:30 Freq: NEEDED Status: Active Protocol: Document 05/15/20 14:40 AB (Rec: 05/15/20 16:39 AB [id number]) Physical Therapy Current Condition Current Condition Evaluation Date 05/15/20 Treatment Diagnosis s/p L TKA; difficulty in walking Onset Date 05/15/20 Weight Bearing Status Weight Bearing Status Weight Bear as Tolerated Allowed Weight Bearing Amount (enter % LLE WBAT or #) (%) M3 PT-IP Subjective Start: 05/15/20 16:30 Freq: NEEDED Status: Active Protocol: Document 05/16/20 09:47 AB (Rec: 05/16/20 11:58 AB [id number]) Subjective Physical Therapy Visit Type Type Treatment Note Visit Start Time 09:47 Visit Stop Time 10:26 Total Visit Minutes 39 Number of UPHOLSTERY CLEANER Visits 0 Physical Therapy Visit Comments Patient Comments pt is agreeable to do PT Therapy Pain Assessment Pain When Pain Assessed At Rest Pain Present Pain Present Pain Reported Location Left Knee Intensity 7 Scale Used Numeric (0 - 10) Pain Management Techniques Apply Cold,Distraction,Re- positioning,Timing of Activity with Medications M4 PT-IP Mobility and Gait Start: 05/15/20 16:30 Freq: NEEDED Status: Active Protocol: Document 05/16/20 09:47 AB (Rec: 05/16/20 11:58 AB [id number]) PT-Bed Mobility Assessment Supine to Sit Supine to Sit Standby Assistance Sit to Supine Sit to Supine Standby Assistance Scooting Scooting to Edge of Bed Standby Assistance Scooting Up and Down in Bed Standby Assistance PT-Transfer Assessment Sit to and From Stand Sit to and from Stand Standby Assistance Equipment Transfer Assistive Device Gait Belt,Front Wheeled Walker Orthotic/Prosthetic Devices or Brace: No Transfers Transfer Destination Toilet Transfer Technique ambulated using FWW Transfer Ability Level of Assist Standby Assistance,1 Person Assistance,Use of Upper Extremities Comments Mobility Comments pt completed supine to sit SBA . requested to use the toilet and ambulated using FWW SBA. pt was able to complete hygiene care and brief management SBA. completed ambulated to the sink using FWW SBA and was able to maintain standing SBA while completing handwashing. pt ambulated to chair using FWW sBA. Nurse has to take hemovac off. pt agreed to do stair. ambulated towards the stairs using FWW SBA. completed up/ down platform step x 2 using fWW CGA and up/down 3 steps using L rail CGA. pt ambulated back to the room and requested to go back to bed and completed sit to supine SBA. positioned pt in bed. call light and table placed within reach. Gait Assessment Gait Gait Assistance Required: Standby Assistance,1 Person Assist Distance (Feet) 50 Able to Maintain Weight Bearing Status Yes During Gait Assistive Devices Assistive Device Gait Belt,Front Wheeled Walker Orthotic/Prosthetic Devices or Brace: No Gait Deviations General Gait Pattern Antalgic,Decreased Stride Length,Decreased Feet Clearance Factors Limiting Gait Function Factors Limiting Gait Function Decreased Activity Tolerance, Decreased Strength,Difficulty Following Directions,Limited Range of Motion,Pain,Poor Balance Stair Climbing Assessment Evaluation Level of Assist On Stairs Contact Guard Assistance Devices Stair Climbing Assistive Devices Front Wheel Walker,Left Railing Technique/Endurance Stair Climbing Direction Ascend and Descend Stair Climbing Technique Step to Step Number of Steps Climbed 3 Stair Climbing Set # Repetitions (reps) 1 Comments Stair Climbing Comments also completed up/down platform stairs x 2 sets CGA M5 PT-IP Objective Assessments Start: 05/15/20 16:30 Freq: NEEDED Status: Active Protocol: Document 05/15/20 14:40 AB (Rec: 05/15/20 16:39 AB [id number]) Orientation Orientation/Cognition Level of Alertness Alert Orientation Name,Place,Situation Language Function Ability No Deficits Noted Safety Awareness Understands Safety Issues Memory Description No Deficits Noted Gross Range of Motion Lower Extremity ROM Impairments L knee flexion: ~ 90 deg L knee extension: lacking ~ 20 deg to neutral Strength Lower Extremity Strength Assessment Left Impaired Hip 4/5 Knee 4-/5 Coordination Assessment Gross Coordination Gross Coordination WNL Sensation Assessment Sensation Gross Sensation Right LE Impaired,Left LE Impaired Light Touch Impaired Proprioception (Position) Impaired Sensation Description Numbness Comments Sensation Comments c/o slight numbness on her feet but can feel her knees Muscle Tone Muscle Tone WNL Yes M6 PT-IP Treatment Start: 09/10/20 16:30 Freq: NEEDED Status: Active Protocol: Document 05/16/20 09:47 AB (Rec: 05/16/20 11:58 AB [id number]) Physical Therapy Treatment Education Education Provided Safety M7 PT-IP Assessment and Plan Start: 05/15/20 16:30 Freq: NEEDED Status: Active Protocol: Document 05/16/20 09:47 AB (Rec: 05/16/20 11:58 AB [id number]) PT Summary Assessment and Plan Potential Rehabilitation Potential Good Summary Impairments Pain,ROM,Strength,Balance, Coordination,Sensation,Tone, Cognition,Bed Mobility, Transfers,Gait,Activity Tolerance Progress Towards Goals Progressing Toward Goals Assessment Summary pt is progressing with mobility and plans to go home today with spouse to assist. pt requiring SBA with mobility using FWW and CGA with stair climbing. pt stated that she is set up for outpt PT. Goals Bed Mobility Goal Independent Transfer Goal Independent,Front Wheeled Walker Gait Goal Independent,Front Wheel Walker Gait Distance 200 Other Goals up/down 3 steps L rail ascending SBA Frequency of Treatment Frequency Of Treatment Twice a Day Treatment Plan Physical Therapy Treatment Plan Bed Mobility Training,Transfer Training,Gait Training, Therapeutic Exercise,Balance Retraining,Post Op Education, Discharge Planning,Hot or Cold Pack,Neuromuscular Re-ed, Coordination Retraining,Manual Therapy Recommendations To Nursing Amount of Assist Needed 1 Person Assist Discharge Recommendations PT Discharge Recommendations Home with Assistance, Outpatient PT Transportation Needs at Discharge Private Vehicle
[2020-05-16] MEDS: CALCIUM CARB/VIT D3 500/200 TABLET 2 EACH PO (10:09)
--- NOTE | 2020-05-16 11:09 | PC.NURSE ---
Patient is anxious. Given Vicodin 2 tabs, and ibuprofen for pain and this has been helpful for patients discomfort. Hemovac taken out, patient tolerated this well. Enforced with a pressure dressing, worked with physical therapy and will be ready to go home around 1330. Aqu[address] in place, cms wnl to l.knee and ppx2.
[2020-05-16 11:14] VITALS: BP 125/53; PULSE 68; RESP 19; TEMP 36.9; O2SAT 99
--- NOTE | 2020-05-16 11:55 | CM.DANOTE ---
Addendum entered by Zaida Nash LPN 05/16/20 12:05: Met with pt and her , at bedside. Pt was found just starting in on a large lunch tray. Introduced self and role. Pt says she is feeling very comfortable with the d/c for today. She has had both hips replaced and has had back surgery and says I kind of knew what to expect. Pt will have PT at [facility]. Home as soon as pt has lunch and the d/c paperwork is completed. Addendum entered by Zaida Nash LPN 05/16/20 11:57: DCP: assessment: case received, EMR reviewed. Discussed in Team Rounds. A d/c to home setting was noted. Pt is a 74 year old female who admitted yesterday for a planned L knee surgery. Surgeon: Dr. Joon Fuentes. Payer: Medicare and [employer]. PT did see her and has cleared her for home today. Will check in now with pt to see about any d/c needs. Original Note: Discharge Planning/Care Management Advanced directive, confirm from FAMILY Start: 05/15/20 11:22 Freq: Q24H Status: Active Protocol: Document 05/15/20 14:17 CLL (Rec: 05/15/20 14:37 CLL [id number]) Co-Signed By Kelley Clark RN 05/15/20 14:17 Advance Directive, confirm on record Time 14:25 Person contacted patient Copy received No Advanced directive available on record No CM Discharge Assessment Start: 05/16/20 11:54 Freq: Status: Active Protocol: Document 05/16/20 11:54 ITV (Rec: 05/16/20 11:55 ITV [id number]) Discharge Planning Assessment Advance Directives? Yes Advance Directives on File Yes History Provided By Medical Record Prior Living Arrangements House Household Members spouse Discharge Plan Home Review Status In Process Pre-Anesthesia Assessment Start: 05/06/20 13:49 Freq: Status: Active Protocol: Document 05/06/20 13:49 CAB (Rec: 05/06/20 15:28 CAB [id number]) Pre-Anesthesia Assessment Preferred Name Chacha Patient Information Reviewed Via Phone Assessment Assessment Completed With Patient Comment Lbs/EKG @ [facility], COVID screen 05/12 Primary Care Provider Alex Reina Seen Specialist in Last 12 Months Yes Specialist Seen Orthopedist,[employer], Other Comment GI Primary Language Malian Preferred Language Malian Skin Carver Required No Height 160.02 cm Weight 42.638 kg Body Mass Index (BMI) 16.6 Hearing Ability Normal Visual Assist Glasses Dentition Type Teeth, Natural Present Barriers to Learning None Other Aids No Hx Anesthesia Reactions No Hx Family Anesthesia Reaction No Hx Malignant Hyperthermia No Hx Blood Transfusions No Anesthesia Review Requested Yes: PAC Courtesy re: Abnormal pre-op EKG Cardiac Monitor Technician No alcohol intake current alcohol intake frequency a few times a week Smoking Status Former smoker Tobacco type cigarettes how long ago did patient quit smoking Quit 03/24/2020 Substance Use Type does not use Pain Present Pain Reported Musculoskeletal Symptoms Abnormal Gait,Back Pain, Difficulty Walking,Joint Pain, Muscle Cramps,Muscle Spasms, Muscle Weakness,Numbness, Radiating Pain into Limb, Tingling History of Falling (Recent or History of Yes ) Patient is completely paralyzed or No completely immobile Mental Status Oriented to own ability Is patient on oxygen? No Does patient have MARIN/SOB No Hx Sleep Apnea No Suspected Sleep Apnea No Currently Taking a Beta [place] Yes Can You Climb a Flight of Stairs Without Yes SOB Hx Chest Pain No Hx SOB No Hx Syncope or Dizziness No Anti-Coagulant Therapy No Has a Service Coordinator Elderly Facility No Cardiac Testing No Hx Pacemaker/ICD No Pacemaker Rep Required? No Cardiac Clearance Received Not Applicable Diet Type At Home Regular dysphagia No Gastrointestinal Symptoms Diarrhea,Reflux Bladder Pattern Frequency,Incontinent,Nocturia Urinary Catheter Present No Hx Urinary Self Catheterization No Diabetes No HgbA1C 5.4 Date 04/16/20 Patient No Lactating No Hx Drug Resistant Organism No Presence of External or Internal Medical Yes: Lumbar/neck hardware, sarmad Devices hip prosthesis, sarmad eye lens Have you had any close contact with No someone diagnosed with COVID-19? Marital Status Lives With spouse Prior Living Arrangements House Number of Floors (Floors) One Floor Support System Child/Children,Spouse Patient Discharge Plan Description Return Home Comment Pt advised overnight length of stay per surgeon Feels Safe in Current Environment Yes Been Physically Hurt or Threatened By a No Person in Current Environment Do you have thoughts of harming yourself None or others? Are you currently considering suicide? No Do you have a plan to hurt yourself or No Plan others? Do You Have Any Spiritual Beliefs That No May Affect Your HC Choices? Do You Have Any Cultural Practices That No May Affect Your HC Choices? Comment Art Who Can We Speak to About Patient's Care Family, friends Identifying Code for Release of Patient Declines to issue Information Health Care Proxy/Next of Kin Addy () Health Care Proxy or [phone] Emergency Contact Name Addy () Emergency Contact or [phone] Advance Directives? Yes Advance Directives on File Yes Power of Mobile Home Lot Utility Worker No PAC Instructions Do not shave/clip surgical site,Durable medical equipment ,Medications to take/avoid, Nasal antibiotic,No ETOH/ petroleum product on skin DOS, NPO,Pre-surgical wash,Sensory aids,Sturdy shoes/comfortable clothes,Do not bring valuables and remove jewelry
== END 2020-05-16 13:13 | disposition home or self-care (01) ==
LOC: OR 06:21 → AC 06:32 → ICU 07:42 → AC 12:34
PROVIDERS: Family Provider Internal Medicine; PCP Orthopaedic Surgery; Referring Provider Orthopaedic Surgery; Visit Provider Orthopaedic Surgery
PROC: 0SRD0JZ Replacement of Left Knee Joint with Synthetic Substitute, Open Approach (ICD-10-PCS; CPT 27447; principal; 2020-05-15 07:45)
DX: M17.32 Unilateral post-traumatic osteoarthritis, left knee (principal); F17.210 Nicotine dependence, cigarettes, uncomplicated; E03.9 Hypothyroidism, unspecified; K21.9 Gastro-esophageal reflux disease without esophagitis
CPT/HCPCS: 27447; 73560; 85014; 85018; 94760; 97116; 97161; 97530; 99406; C1776; C9290; J0690; J1100; J2250; J2274; J2405; J3010

== ENCOUNTER → 2022-05-24 13:18 | Outpatient (CLI) | payer MEDICARE, SELFPAY ==
[2020-05-15 11:13] VITALS: BMI 17.0
--- NOTE | 2022-05-24 | DI.MRI.S_ITS ---
PROCEDURE: MR LUMBAR SPINE WO CON INDICATIONS: LUMBAR RADICULOPATHY TECHNIQUE: Noncontrast sagittal T1 spin echo and T2 fast echo, sagittal STIR, and T2 fast spin echo through the lumbar spine. In cases with scoliosis, additional coronal T2 fast spin echo may be performed. COMPARISON: [facility], MR, MR LUMBAR SPINE WITH/WITHOUT CONTRAST, 06/19/2021, 9:45. , MR, L-SPINE WITHOUT CONTRAST, 07/29/2017, 8:54. FINDINGS: Image quality: Excellent. Alignment and Curvature: Posterior fusion is present from L3 through L5. There is 1-2 mm retrolisthesis of L1 on L2, L2 on L3, unchanged. Bone Marrow: Marrow is of normal overall signal. No acute vertebral body compression fractures. Spinal Cord: Conus medullaris terminates at the L1 level. Visualized cord demonstrates normal signal and size. Paraspinous Soft Tissues: No paravertebral masses. Discs: [id number] desiccation is present throughout the lumbar spine. L1-L2: Mild disc bulge with mild spinal stenosis, slightly progressive compared to prior exam. Motion artifact is also present at this level. [id number] right and moderate left foraminal narrowing, slightly progressive. Facet and ligamentum flavum hypertrophy are present. L2-L3: Mild disc bulge with moderate to severe spinal stenosis, unchanged. There is [id number] bilateral foraminal narrowing with facet and ligamentum flavum hypertrophy, slightly progressive. L3-L4: Postsurgical changes are present. Right hemilaminectomy. No spinal stenosis. Foramina are partially obscured secondary to artifact. There is felt to be at least left mild foraminal narrowing unchanged. L4-L5: Postsurgical changes are present. Right hemilaminectomy is noted. No spinal stenosis. Foramina are partially obscured secondary to artifact. No gross of foraminal narrowing. L5-S1: Mild disc bulge without spinal stenosis or foraminal narrowing. IMPRESSION: Posterior fusion from L3 through S1. Spinal stenosis remains most severe at L2-3 unchanged. Foraminal narrowing most notable at L1-2 and L2-3, questionably minimally progressive at L1-2. Facet and ligamentum flavum arthropathy are present. Dictated by: Claudia Suarez M.D. on 05/24/2022 at 16:58 Approved by: Claudia Suarez M.D. on 05/24/2022 at 17:03
== END ==
PROVIDERS: Family Provider Internal Medicine; PCP Registered Nurse; Referring Provider Orthopaedic Surgery; Visit Provider Orthopaedic Surgery
DX: M54.16 Radiculopathy, lumbar region (principal); Z98.1 Arthrodesis status; M48.061 Spinal stenosis, lumbar region without neurogenic claudication; M47.816 Spondylosis without myelopathy or radiculopathy, lumbar region
CPT/HCPCS: 72148

== ENCOUNTER → 2023-02-08 15:37 | Outpatient (CLI) | payer MEDICARE, SELFPAY ==
[2020-05-15 11:13] VITALS: BMI 17.0
--- NOTE | 2023-02-08 | DI.MRI.S_ITS ---
PROCEDURE: MR LUMBAR SPINE WO/W CON INDICATIONS: other specified postprocedural states TECHNIQUE: Noncontrast sagittal T1 spin echo and T2 fast spin echo, sagittal STIR, axial T1 and T2 fast spin echo through the lumbar spine. In cases with scoliosis, additional coronal T2 fast spin echo may be performed. After the administration of contrast, sagittal and axial T1 spin echo with fat saturation through the lumbar spine. COMPARISON: [facility], MR, MR LUMBAR SPINE WO CON, 05/24/2022, 13:26. [facility], RG, XR L-SPINE OUTSIDE FILMS, 01/10/2007, 10:07. [facility], MR, L-SPINE WITH AND WITHOUT CONTR, 06/23/2007, 8:44. FINDINGS: Image quality: Degraded by metallic artifact. Alignment and curvature: 5 lumbar type vertebral bodies are present by plain film. 3 mm of retrolisthesis T12 on L1. 4 mm of retrolisthesis of L1 on L2. 2 mm of retrolisthesis of L2 on L3. 2 mm of anterolisthesis of L4 on L5. Marrow: Marrow is of normal overall signal. No acute vertebral body compression fractures. No suspicious marrow enhancement. Posterior fusion hardware at L3-L5. Mild reactive signal throughout the endplates of the lumbar and lower thoracic spine. Spinal cord: Conus medullaris terminates at the mid L1 level. Visualized spinal cord demonstrates normal signal, without suspicious enhancement. Paraspinous soft tissues: No paravertebral masses or abnormal enhancement. There is increased, moderate biliary ductal dilatation. Common bile duct measures 14 mm (previously measured 11 mm). T12-L1: Moderate disc height loss and desiccation. Mild diffuse disc bulge. Mild facet and ligamentum flavum hypertrophy. Mild canal stenosis. Mild left greater than right foraminal stenosis. No significant change. L1-L2: Moderate disc height loss and desiccation. Moderate diffuse disc bulge. Mild facet and ligamentum flavum hypertrophy. Mild epidural lipomatosis. There is increased, moderate canal stenosis. No change in moderate bilateral foraminal stenosis. L2-L3: Moderate disc desiccation. Mild disc height loss. Moderate diffuse disc bulge. Mild bilateral facet hypertrophy. Mild canal stenosis. Moderate bilateral foraminal stenosis. No significant change. L3-L4: Posterior fusion. Interbody device placement. Mild residual disc bulge. Mild bilateral facet hypertrophy. Mild canal stenosis. Mild bilateral foraminal stenosis. No significant change. L4-L5: Posterior fusion. Interbody device placement. Mild bilateral facet hypertrophy. No significant canal stenosis. Mild bilateral foraminal stenosis. No significant change. L5-S1: Moderate disc desiccation. Mild disc height loss and diffuse disc bulge. Mild bilateral facet hypertrophy. No significant canal nor foraminal stenosis. No significant change. IMPRESSION: 1. Postsurgical sequelae. 2. Multilevel degenerative disc and facet disease, as well as ligamentum flavum hypertrophy and epidural lipomatosis. 3. Multilevel canal stenoses, worst at L1-L2 where there is moderate canal stenosis. 4. Multilevel foraminal stenoses, worst at L1-L2 where there are moderate foraminal stenoses. Dictated by: Mavis Pitts M.D. on 02/09/2023 at 8:43 Approved by: Mavis Pitts M.D. on 02/09/2023 at 9:17
== END ==
PROVIDERS: Family Provider Internal Medicine; PCP Registered Nurse; Referring Provider Orthopaedic Surgery; Visit Provider Orthopaedic Surgery
DX: M51.16 Intervertebral disc disorders with radiculopathy, lumbar region (principal); M51.17 Intervertebral disc disorders with radiculopathy, lumbosacral region; M48.061 Spinal stenosis, lumbar region without neurogenic claudication; M47.26 Other spondylosis with radiculopathy, lumbar region; M47.27 Other spondylosis with radiculopathy, lumbosacral region; M43.16 Spondylolisthesis, lumbar region; Z98.890 Other specified postprocedural states
CPT/HCPCS: 72158; A9579

== ENCOUNTER → 2023-03-26 11:36 | Outpatient (CLI) | payer MEDICARE, SELFPAY ==
[2020-05-15 11:13] VITALS: BMI 17.0
--- NOTE | 2023-03-26 | DI.CT.S_ITS ---
PROCEDURE: CT LUMBAR SPINE WO CON INDICATIONS: Lumbar Radiculopathy TECHNIQUE: Noncontrast 3 mm thick sections acquired from the T12 level to the sacrum. Sagittal and coronal reformats were constructed. For radiation dose reduction, the following was used: automated exposure control. COMPARISON: [facility], MR, MR LUMBAR SPINE WO/W CON, 02/08/2023, 16:04. FINDINGS: Image quality: Study limited by significant streak artifact from posterior spinal fusion hardware. Bones: There is stable bony alignment status post spinal fusion of L3 through L5. Bilateral pedicular screws and paraspinal rods are unchanged in appearance. There is minimal retrolisthesis of L1 on L2 and minimal grade 1 anterolisthesis of L4 on L5. No findings to suggest hardware loosening or failure. Postsurgical changes of L3 left hemilaminectomy, right L4 hemilaminectomy. No acute vertebral body compression fractures. No suspicious lytic or blastic bony lesions. No pars defects. T12-L1: Moderate disc height loss. Degenerative endplate changes. Bilateral facet arthropathy. Mild canal stenosis. Moderate bilateral neural foraminal stenosis. L1-L2: Disc space loss. Degenerative endplate changes. Ligamentum flavum hypertrophy. Bilateral facet arthropathy. Mild-moderate spinal canal stenosis. Moderate bilateral neural foraminal stenosis. L2-L3: Minimal disc height loss. Metric disc bulge. Bilateral facet arthropathy. Left chente laminectomy. Mild bilateral neural foraminal stenosis. Minimal spinal canal stenosis. L3-L4: Moderate bilateral facet arthropathy. Right hemilaminectomy. Status post discectomy with interbody spacer. Minimal bilateral neural foraminal stenosis. Minimal spinal canal stenosis. L4-L5: Posterior fusion. Moderate bilateral facet arthropathy. Status post discectomy with interbody spacer. No significant spinal canal stenosis. Minimal bilateral neural foraminal stenosis. L5-S1: Mild bilateral facet arthropathy. Disc space loss. Small symmetric disc bulge. Minimal-mild bilateral neural foraminal stenosis. No significant spinal canal stenosis. Soft tissues: No retroperitoneal masses or hematomas. Visualized aorta is normal in caliber. Dense atherosclerotic calcifications of the abdominal aorta. Heart size is normal. Atherosclerotic calcification of the coronary arteries. Postsurgical versus post biopsy changes of the right breast. No axillary adenopathy. Prominent pretracheal lymph node measuring approximately 0.9 cm in short axis dimension. Scarring of the bilateral upper lobes. Irregular pulmonary nodules of the right upper lobe versus focal scarring measuring up to 0.9 cm. Bandlike consolidation involving the posterior left upper lobe may represent atelectasis and/or scarring. No pneumothorax or pleural effusion. Unremarkable appearance of the liver, gallbladder, pancreas, and spleen. Both kidneys are normal in size without hydronephrosis. No renal stones identified. Visualized bowel appear unremarkable. No evidence for bowel obstruction. No adenopathy seen. No free fluid or free air. Status post bilateral total hip arthroplasties resulting in significant streak artifact in the lower pelvis. IMPRESSION: 1. Stable postsurgical changes and alignment from posterior spinal fusion of L3 through L5 using bilateral pedicular screws and paraspinal rods. No evidence to suggest hardware complication. 2. Multilevel, multifactorial lumbar spondylosis as described above by vertebral body level. Overall, findings appear relatively stable accounting for differences in imaging technique since previous MRI dated February 08, 2023. 3. Bilateral upper lobe pulmonary scarring with more focal irregular nodules of the right upper lobe which may represent focal scarring versus irregular pulmonary nodules measuring up to 0.9 cm in size. There is also bandlike consolidation versus scarring/atelectasis of the left upper lobe. Recommend follow-up chest CT in 3 months versus PET-CT. Dictated by: Freedom Santo M.D. on 03/26/2023 at 20:07 Approved by: Freedom Santo M.D. on 03/26/2023 at 20:29
--- NOTE | 2023-03-26 | DI.CT.S_ITS ---
PROCEDURE: CT THORACIC SPINE WO CON INDICATIONS: Lumbar Radiculopathy TECHNIQUE: Noncontrast 3 mm thick sections acquired through the region of interest in the thoracic spine. Sagittal and coronal reformats were then constructed. For radiation dose reduction, the following was used: automated exposure control. COMPARISON: None. FINDINGS: Image quality: Excellent. Bones: There is normal overall bony alignment. No acute vertebral body compression fractures. No suspicious sclerotic or lytic bony lesions. Central spinal canal is of normal overall caliber. No evidence to suggest significant bony bilateral neuroforaminal stenosis. Soft tissues: No paravertebral masses or hematomas. There is ill-defined scarring of the bilateral upper lobes which appears relatively symmetric. Additionally, ill-defined irregular nodules are noted in the right upper lobe measuring up to 0.8 cm in size. These may represent more focal areas of scarring. Subpleural thickening/scarring noted in the bilateral lower lobes. Scarring versus atelectasis noted along the pleural aspect of the left upper lobe. No pneumothorax or pleural effusion. Central airways are patent. No evidence for bronchiectasis. There is a prominent precarinal lymph node measuring 0.9 cm in short axis dimension (32/series 3). Heart size is normal. Atherosclerosis. No axillary adenopathy. Postsurgical versus post biopsy changes of the right breast. IMPRESSION: 1. CT thoracic spine without acute fracture or acute compression fractures. No significant spondylitic changes. No significant neuroforaminal or spinal canal stenosis identified. 2. Ill-defined scarring of the bilateral upper lobes with irregular right upper lobe pulmonary nodules which may represent focal scarring versus possible nodules. These measure up to 9 mm in size. There is also irregular consolidation along the left upper lobe which may represent scarring versus atelectasis. Recommend follow-up chest CT in 3 months versus PET-CT for further evaluation. 3. Atherosclerotic vascular disease. Dictated by: Freedom Santo M.D. on 03/26/2023 at 19:57 Approved by: Freedom Santo M.D. on 03/26/2023 at 20:06
== END ==
PROVIDERS: Family Provider Internal Medicine; PCP Registered Nurse; Referring Provider Orthopaedic Surgery; Visit Provider Orthopaedic Surgery
DX: M47.26 Other spondylosis with radiculopathy, lumbar region (principal); M47.27 Other spondylosis with radiculopathy, lumbosacral region; R91.8 Other nonspecific abnormal finding of lung field; Z98.1 Arthrodesis status; Z96.643 Presence of artificial hip joint, bilateral
CPT/HCPCS: 72128; 72131

== ENCOUNTER → 2024-01-25 13:48 | Outpatient (CLI) | payer MEDICARE, SELFPAY ==
[2020-05-15 11:13] VITALS: BMI 17.0
--- NOTE | 2024-01-25 13:50 | DI.CT.S_ITS ---
PROCEDURE: CT LUMBAR SPINE WO CON INDICATIONS: Arthrodesis status TECHNIQUE: Noncontrast 3 mm thick sections acquired from the T12 level to the sacrum. Sagittal and coronal reformats were constructed. For radiation dose reduction, the following was used: automated exposure control. COMPARISON: [facility], CT, CT LUMBAR SPINE WO CON, 03/26/2023, 11:50. FINDINGS: Image quality: Excellent. Bones: Extension of posterior spinal fixation hardware, now extending T11 through L4. Discectomy changes at L1-L2, L2-L3, L3-L4 and L4-5. Lucency surrounding the bilateral T12 and L4 screws which is new in appearance compared to prior. Screw tracks noted L5. Mild retrolisthesis at T12-L1. Grade 1 anterolisthesis of L4 on L5. Diffusely decreased osseous mineralization. Redemonstration of degenerative changes without significant central canal or neural foraminal stenosis. Soft tissues: No retroperitoneal masses or hematomas. Visualized aorta is normal in caliber. Atherosclerotic vascular calcifications. IMPRESSION: Extension of posterior spinal fixation as above. Lucency surrounding the bilateral T12 and L4 screws which is new in appearance compared to prior at L4, differential includes infection or loosening and clinical correlation is recommended. Redemonstration of degenerative changes without significant central canal or neural foraminal stenosis. Dictated by: Jose Ramos M.D. on 01/25/2024 at 16:02 Approved by: Jose Ramos M.D. on 01/25/2024 at 16:07
== END ==
LOC: CT 13:49
PROVIDERS: Family Provider Internal Medicine; PCP Registered Nurse; Referring Provider Orthopaedic Surgery; Visit Provider Orthopaedic Surgery
DX: M43.16 Spondylolisthesis, lumbar region (principal); M47.816 Spondylosis without myelopathy or radiculopathy, lumbar region; M54.50 Low back pain, unspecified; Z98.1 Arthrodesis status
CPT/HCPCS: 72131